=== PATIENT | female | born 1960 | race Caucasian/White ===

== ENCOUNTER 2022-08-12 01:49 | Day surgery (SDC) | payer OTHER, SELFPAY ==
[2022-08-02 13:20] VITALS: BMI 25.6
--- NOTE | 2022-08-11 12:12 | P.PNAN_ITS ---
Anes - Initial Pre Proc Eval Procedure: Operation Date: 08/12/22 09:30 Proposed Procedures p Screening Colonoscopy - Andi Dos Santos MD Date/Time: 08/11/22 12:12 Surgeon: Andi Dos Santos MD Pre Op Diagnosis: neoplasm screening Patient Data Age: 62 Gender: F Height: 1.57 m Weight: 63.6 kg Allergies Allergy/AdvReac Type Severity Reaction Status Date / Time No Known Allergies Allergy Verified 08/12/22 08:25 Patient hx anesthesia problems: none Family hx anesthesia problems: none Results Review: All pre-operative results and documents have been reviewed as part of the pre- operative evaluation. [facility] Surgical History Surgical History History of hysterectomy partial Social History Social History Years smoked: 3 Smoking status: Former smoker Tobacco type: cigarettes Alcohol intake: current Drinks per week: 1 Substance use: never Substance use type: does not use Living arrangements: alone Spiritual care concerns: No Anes - Eval Final PreProcedure Day of Procedure 08/11/22 12:12 Patient weight: overweight Heart: regular rate and rhythm Lungs: clear to auscultation Airway: Mallampati scale class II Neurological: alert and oriented Last oral intake: >/= 8 hours ASA classification: II Emergent: no Anesthetic plan: proceed Anesthesia type and monitoring: general GIVS and standard monitoring Results Review: All pre-operative results and documents have been reviewed as part of the pre- operative evaluation. Informed Consent: The patient's anesthetic plan and its attendant risks and benefits were discussed with the patient/family/POA. Questions were solicited and answers provided to the satisfaction of the patient/family/POA.
--- NOTE | 2022-08-11 19:44 | PM.HPGS ---
History of Present Illness History of Present Illness Consent: Risks, benefits, and alternatives have been discussed and questions answered. Patient agrees to proceed with procedure. Chief complaint: neoplasm screening Narrative: Grace Bañuelos is a 62 year old female who is referred for colon cancer screening. Review of Systems Review of Systems: All systems reviewed & are unremarkable except as noted in HPI and below PMFSH Surgical History Surgical History History of hysterectomy partial Social History Social History Years smoked: 3 Smoking status: Former smoker Tobacco type: cigarettes Alcohol intake: current Drinks per week: 1 Substance use: never Substance use type: does not use Living arrangements: alone Spiritual care concerns: No Meds Home Medications and Allergies Allergies Allergy/AdvReac Type Severity Reaction Status Date / Time No Known Allergies Allergy Verified 08/12/22 08:25 Exam Const: General: alert Orientation/consciousness: patient oriented x3 Resp: Auscultation: clear to auscultation bilaterally Cardio: Rhythm: regular rhythm GI: GI Palp: Yes Soft to palpation and No Tenderness to palpation present (GI) Neuro: General: patient oriented x3 Assessment and Plan Assessment and plan (1) Colon cancer screening: Code(s): Z12.11 - Encounter for screening for malignant neoplasm of colon Status: Acute Assessment and Plan: Colonoscopy with possible biopsy or polypectomy or cautery or injection of substances.
[2022-08-12 08:30] VITALS: BP 129/75; PULSE 71; RESP 20; TEMP 36.3; O2SAT 99; BMI 25.8
[2022-08-12] MEDS: LACTATED RINGERS 1,000 ML 150 ML IV CONT (08:38)
[2022-08-12 09:38] VITALS: BP 90/50; PULSE 81; RESP 19; O2SAT 98
[2022-08-12 09:48] VITALS: BP 91/59; PULSE 87; RESP 18; O2SAT 97
[2022-08-12 09:58] VITALS: BP 98/66; PULSE 72; RESP 28; O2SAT 100
== END 2022-08-12 10:06 | disposition home or self-care (01) ==
PROVIDERS: PCP Family Medicine; Visit Provider Internal Medicine Gastroenterology
PROC: 0DJD8ZZ Inspection of Lower Intestinal Tract, Via Natural or Artificial Opening Endoscopic (ICD-10-PCS; CPT 45378; principal; 2022-08-12 09:30)
DX: Z12.11 Encounter for screening for malignant neoplasm of colon (principal); Z87.891 Personal history of nicotine dependence
CPT/HCPCS: 45378; J2704; J7120

== ENCOUNTER 2024-05-01 08:00 | Outpatient (CLI) | payer OTHER, SELFPAY ==
--- NOTE | ~2024-05-01 | DEXA_ITS ---
Bone Density Report Name: VALERIANO ALVARADO Age: 63 Sex: Female Ethnicity: White Date of : 1960 Indication: postmenopausal; screening for osteoporosis; hysterectomy; Referring Provider: ADRIANA MILLER Study: Bone densitometry was performed. Exam Date: May 01, 2024 Accession number: [id number] Bone Density: Region BMD T-score Z-score Classification AP Spine(L1-L4) 1.056 0.1 1.7 Normal Femoral Neck (Left) 0.682 -1.5 -0.1 Osteopenia Total Hip (Left) 0.886 -0.5 0.6 Normal Femoral Neck (Right) 0.699 -1.3 0.1 Osteopenia Total Hip (Right) 0.847 -0.8 0.3 Normal Total Hip Mean 0.866 -0.7 0.5 Normal World Health Organization criteria for BMD impression classify patients as: Normal (T-score at or above -1.0), Osteopenia (T-score between -1.0 and -2.5), or Osteoporosis (T-score at or below -2.5). 10-year Fracture Risk(1): Major Osteoporotic Fracture 8.6% Hip Fracture 0.8% Reported Risk Factors: [place] (), Neck BMD=0.682, BMI=26.7 (1) FRAX(R) Version 3.08. Fracture probability calculated for an untreated patient. Fracture probability may be lower if the patient has received treatment. Clinical Information Provided by Patient: Has used the following medications: Vitamin D Has the following medical conditions: Hysterectomy Patient maximum height was 62.0 Menopause Age: 55 No regular weight bearing exercise Drinks caffeinated beverages Onset of menses at age 13 Number of children 1 Impression: The patient has low bone mass, based on the Left Femoral Neck T-score. The patient has an estimated ten-year risk of hip fracture of 0.8% and an estimated ten-year risk of major fracture of 8.6%, based on the WHO FRAX algorithm. Discussion: BONE DENSITY IS LOW AT ONE OR MORE SKELETAL SITES. This patient's lowest T-score is low at one or more skeletal sites. It meets the World Health Organization's (WHO) criteria for ?low bone mass? (T-score between -1.0 and -2.5). The patient's 10-year risk of fracture as calculated by FRAX is less than the threshold where pharmacological therapy is recommended by the National Osteoporosis Foundation (NOF). However, all treatment decisions require clinical judgment and consideration of individual patient factors, including patient preferences, comorbidities, previous drug use, risk factors not captured in the FRAX model (e.g., frailty, falls, vitamin D deficiency, increased bone turnover, interval significant decline in bone density) and possible under or overestimation of fracture risk by FRAX. The patient should follow a healthful lifestyle (good nutrition with adequate calcium and vitamin D, and appropriate weight-bearing exercise). Follow-Up: Consider repeating this study in 2 to 3 years to reassess this patient's status, or sooner if there is some new clinical indication. Reported by: KARINE on 05/01/2024 8:31:00 AM. Reviewed, dictated and finalized at location [facility]
--- OUTSIDE RECORDS SUMMARY | 2024-05-01 08:07 | XMS_ITS | Encounter Summary ---
Author Organization [facility] Healthcare Address [address] [place] [address] Care Team Providers Care Viscose Cellar Charge Hand Name Role Phone Alexis Flood MD Primary Care Provider [phone] Encounter Details Date Type Department Care Team (Late st Contact Info) Description 04/17/2024 Results Follow-Up Family Physicians [facility] [address] [place] [address] Alexis Flood MD [address] [facility] [place] [address] Social History Tobacco Use Types Packs/Day Years Used Date Smoking Tobacco: Former Cigarettes 0.3 4 0 06/01/1976 - 06/01/1980 Smokeless Tobacco: Never Alcohol Use Standard Drinks/Week Comments Yes 0 (1 standard drink = 0.6 oz pur e alcohol) PHQ-2 Answer Date Recorded PHQ-2 Total Score (If total score is 3 or more points, staff should administer the PHQ-9) 0 04/09/2024 Comments Unknown Sex and Gender Information Value Date Recorded Sex Assigned at Not on file Legal Sex Female 11:55 PM SENIOR CHEMIST Gender Identity Not on file Sexual Orientation Not on file documented as of this encounter Miscellaneous Notes * Telephone Encounter - Polly Damon MA - 04/22/2024 8:52 AM CST FYSammi Flood OR CHEMIST documented in this encounter Plan of Treatment Not on file documented as of this encounter Visit Diagnoses Not on filedocumented in this encounter Care Teams Viscose Cellar Charge Hand Relationship Specialty Start Date End Date Alexis Flood MD [address] [place] [address] PCP - General 06/02/08 documented as of this encounter
--- OUTSIDE RECORDS SUMMARY | 2024-05-01 08:07 | XMS_ITS | Patient Health Summary ---
Author Organization [facility] Address [address] [place] [address] Care Team Providers Care Harpooner Name Role Phone Alexis Flood MD Primary Care Provider [phone] Note from [facility],non-owned Affiliates and Associated Physician Practices is amultiple site organization consisting of ambulatory clinics and hospital sitesin [place], [place], [place] and [place]. This disclosure is being madepursuant to the Care Everywhere program and may not contain all information available regarding this patient. Last updated 17.[facility] Allergies No known active allergies Medications * Be aware that medications may not be up to date on this document. Alwaysverify current medications with the patient. * Multiple Vitamins-Minerals (ONE-A-DAY WOMENS PETITES) TABS Take 1 (one) tablet by mouth once daily * estradiol (Estrace) 0.1 MG/GM vaginal cream(Started 04/20/2023) Insert 1 g into the vagina Two times a week 3 refills by 04/19/2024 Active Problems Problem Noted Date Diagnosed Date Osteoarthritis of carpometacarpal joint of thumb 04/22/2015 Resolved Problems Problem Noted Date Diagnosed Date Resolved Date Urinary tract infection 10/21/201408/20 Immunizations * INFLUENZA VACCINE(Given 12/02/2019, 12/20/2018, 04/19/2018, 01/03/2017) * INFLUENZA VACCINE, HIGH-DOSE, QUADR. (FLUZONE HIGH-DOSE QUADRIVALENT; 65Y+), 0.7 ML (HD-IIV4)(Given 02/04/2016) * INFLUENZA VACCINE, QUADR. (FLUZONE; FLULAVAL; FLUARIX; AFLURIA QUADRIVALENT; 6MO+), 0.5 ML (IIV4)(Given 12/12/2017) * TDAP (7yrs+)(Given 01/12/2009) * Zoster Hzv Vacc Recombinant Inj Im(Given 07/20/2018, 04/19/2018) Social History Tobacco Use Types Packs/Day Years Used Date Smoking Tobacco: Former Cigarettes Q uit: 1982 Passive Smoke Exposure: Never Smokeless Tobacco: Never Alcohol Use Standard Drinks/Week Comments Yes 1 (1 standard drink = 0.6 oz pur e alcohol) AUDIT-C Answer Date Recorded Q1: How often do you have a drink containing alc ohol? Monthly or less 10/02/2019 Q2: How many drinks containi ng alcohol do you have on a typical day when you are drinking? 1 or 2 10/02/2019 Q3: How often do you have si x or more drinks on one occasion? Never 10/02/2019 PHQ-2 Answer Date Recorded Patient Health Questionnaire-2 Score 4 03/27/2023 Sex and Gender Information Value Date Recorded Sex Assigned at Not on file Gender Identity Not on file Sexual Orientation Not on file Last Filed Vital Signs Vital Sign Reading Time Taken Comments Blood Pressure 124/84 03/30/2023 11:47 AM [employer]ICER Pulse 71 04/23/2020 12:07 PM [employer] OFFICER Temperature 36.7 C (98.1 F) 03/30/2023 11:47 AM [employer] OFFICER Respiratory Rate - - Oxygen Saturation 98% 04/23/2020 12:07 PM [employer] OFFICER Inhaled Oxygen Concentration - - Weight 65.3 kg (144 lb) 03/30/2023 11:47 AM [employer] OFFICER Height 157.5 cm (5' 2.01 ) 03/30/2023 11:[address] Body Mass Index 26.33 03/30/2023 11:47 AM [employer] OFFICER Procedures * CO INSERT NON-INDWELLING BLADDER(Performed 03/21/2022) Performed for Postop check * URINALYSIS AUTO - POINT OF CARE (AMB) [facility](Performed 03/21/2022) Performed for Postop check * CO INSERT NON-INDWELLING BLADDER(Performed 02/09/2022) Performed for Postop check * CO CYSTOMETROGRAM W/INSURANCE BILLING SPECIALIST&UP(Performed 01/12/2022) Performed for Cystocele, midline, Stress incontinence in female * CO INTRAABDOMINAL PRESSURE TEST(Performed 01/12/2022) Performed for Cystocele, midline, Stress incontinence in female * CO ANAL/URINARY MUSCLE STUDY(Performed 01/12/2022) Performed for Cystocele, midline, Stress incontinence in female * CO ELECTRO-UROFLOWMETRY, FIRST(Performed 01/12/2022) Performed for Cystocele, midline, Stress incontinence in female * URINALYSIS AUTO - POINT OF CARE (AMB) [facility](Performed 01/12/2022) Performed for Cystocele, midline * PATHOLOGY/CYTOLOGY REPORT ORDER(Performed 03/16/2020) * LAB RESULTS ORDER(Performed 03/10/2020) * CARDIAC EKG ORDER(Performed 03/05/2020) * CO CYSTOMETROGRAM W/INSURANCE BILLING SPECIALIST&UP(Performed 10/02/2019) Performed for Cystocele, midline, Uterovaginal prolapse, complete, Rectocele, Constipation, unspecified constipation type * CO INTRAABDOMINAL PRESSURE TEST(Performed 10/02/2019) Performed for Cystocele, midline, Uterovaginal prolapse, complete, Rectocele, Constipation, unspecified constipation type * CO ANAL/URINARY MUSCLE STUDY(Performed 10/02/2019) Performed for Cystocele, midline, Uterovaginal prolapse, complete, Rectocele, Constipation, unspecified constipation type * CO ELECTRO-UROFLOWMETRY, FIRST(Performed 10/02/2019) Performed for Cystocele, midline, Uterovaginal prolapse, complete, Rectocele, Constipation, unspecified constipation type * URINALYSIS AUTO - POINT OF CARE (AMB) [facility](Performed 10/02/2019) Performed for Cystocele, midline, Uterovaginal prolapse, complete, Rectocele, Constipation, unspecified constipation type * CO INSERT NON-INDWELLING BLADDER(Performed 08/23/2019) Performed for Cystocele, midline * URINALYSIS AUTO - POINT OF CARE (AMB) [facility](Performed 08/23/2019) Performed for Cystocele, midline Results * CO INSERT NON-INDWELLING BLADDER (03/21/2022 4:07 PM [employer] OFFICER) Jeaneth Goins MD - 03/21/2022 4:07 PM [employer] OFFICER Jeaneth Martin MD 03/21/2022 4:09 PM Procedure note: Straight catheterization was performed after swabbing the urethra with betadine. A 14 Fr urethral catheter was inserted without difficulty and the bladder was drained for 8 ml. Jeaneth Martin MD PROCEDURE/MINOR ROSALES GICAL ORDERABLES * URINALYSIS AUTO - POINT OF CARE (AMB) [facility] (03/21/2022 4:05 PM [employer] OFFICER) Only the most recent of4 resultswithin the time period is included. Glucose UA neg Bilirubin UA POCT neg Ketones UA POCT neg Specific [place] UA 1.030 Blood Urine POCT neg pH UA 5.5 Protein UA neg Urobilinogen UA - Comment:0.2 mg/dL Nitrite UA neg WBC UA neg Urine URINE / Unknown 03/21/2022 4 :05 PM [employer] OFFICER Jeaneth Martin MD LAB - POINT OF CARE ORDERABLES * CO INSERT NON-INDWELLING BLADDER (02/09/2022 3:31 PM [employer]CEMENT OFFICER) Narrative Jeaneth Martin MD - 02/09/2022 3:31 PM [employer] OFFICER Jeaneth Martin MD 02/09/2022 3:33 PM Procedure note: Straight catheterization was performed after swabbing the urethra with betadine. A 14 Fr urethral catheter was inserted without difficulty and the bladder was drained for 200cc. Jeaneth Martin MD PROCEDURE/MINOR ROSALES GICAL ORDERABLES * CO ELECTRO-UROFLOWMETRY, FIRST, CO ANAL/URINARY MUSCLE STUDY, CO INTRAABDOMINAL PRESSURE TEST, CO CYSTOMETROGRAM W/INSURANCE BILLING SPECIALIST&UP (01/12/2022 4:07 PM [employer]CEMENT OFFICER) Narrative Jeaneth Martin MD - 01/12/2022 4:07 PM [employer]CEMENT OFFICER Jeaneth Martin MD 01/12/2022 5:46 PM Urogynecology and Pelvic Reconstructive Surgery Procedure Note: Urodynamic Evaluation 01/12/2022 Evangelina Bañuelos is a 61 year old female who presents for a urodynamic evaluation. Indication(s) for study: cystocele, stress urinary incontinence. Laboratory Results: Catheterized urine dipstick shows: trace ketones Urodynamic Data: Urodynamic studies are performed in a seated position unless otherwise noted. Complex uroflowmetry was performed to noninvasively study the urine flow over time. The patient was instructed to void on a commode chair. A post void residual urine measurement was performed via straight catheterization immediately after uroflowmetry. Using calibrated equipment, the maximum urinary flow rate was 21 cc per second with a voiding time of 40 seconds and a voided volume of 383 cc. The residual urine was 3 cc. Complex Uroflowmetry Impressions: Continuous flow, normal PVR Complex cystometry was performed to assess bladder sensation and storage. A dual-channel 7-Fr catheter was passed via the urethra into the bladder. A second 7-Fr catheter was placed in the vagina or rectum to measure intra-abdominal pressure. Both catheters were zeroed to atmospheric pressure and the bladder was filled with room-temperature saline in retrograde fashion using a pump. Bladder sensation and urgency were assessed while filling. Bladder pressure was continuously observed during the study for evidence of involuntary detrusor contractions. At maximum capacity, provocative measures were performed to elicit involuntary detrusor contractions. These measures include: cough, heel-bounce, listening to running water, position change, and/or guided imagery. The bladder was filled with room temperature water at a rate of 80 cc per minute. The patient tolerated this and she was found to have: First sensation (S1) at 142 cc. Sensation of fullness at 292 cc. Strong desire at 405 cc. Maximal cystometric capacity of 435 cc. She does have normal bladder compliance. She does not have loss of urine with a rise in detrusor pressure. Stress testing was performed during cough and Valsalva to observe for urine loss from the urethra. This is performed with any significant prolapse reduced (barrier reduction testing). If no stress incontinence is noted with the transurethral in place, the catheter is temporarily removed and stress testing is repeated. Cough leak point pressure (CLPP): CLPP: leak with the Pves catheter removed Valsalva leak point pressure (VLPP): Negative VLPP: 52 cm H20 at 151 cc Complex Cystometry Impressions: Bladder Sensation: normal Bladder Compliance: normal Detrusor Function: no detrusor overactivity Stress Testing Impressions: urodynamic stress incontinence Urethral pressure profilometry was performed to assess urethral function. The transurethral catheter is slowly withdrawn through the urethra in order to assess urethral closure pressures. Once this portion of the study is completed, the transurethral catheter is re-inserted into the bladder for the remainder of the urodynamic evaluation. Urethral pressure profilometry (UPP): Maximal urethral closure pressure (MUCP): 65 cm H20 Urethral Pressure Profile Impression: MUCP: Normal (MUCP > 40 cm H20) A micturition, or pressure-flow study, was performed in order to further evaluate voiding function. In this study the transurethral and vaginal (or rectal) catheters are left in place and the patient urinates around these catheters. Bladder pressures are recorded while also recording urine flow over time. At the end of the study, all catheters are removed and a final post void residual is obtained. Post procedure instructions are reviewed. The patient was instructed to void. She voided via detrusor contraction and valsalva. Her maximal detrusor during void (Pdet max) was 27 cm water. Her void was not phasic. Her post void residual by catheterization was 2 cc. Pressure Flow Study Impressions: Detrusor function: normal Perineal surface electromyography (EMG) was performed during complex cystometry and micturition, to assess pelvic floor muscle activity during filling and voiding phases of urodynamic studies. Urethral function: elevated pelvic floor EMG activity during the void, normal PVR Assessment: Grace Bañuelos is a 61 year old female with: ICD-10-CM 1. Cystocele, midline N81.11 URINALYSIS AUTO - POINT OF CARE (AMB) [facility] PROC URODYNAMICS 2. Stress incontinence in female N39.3 PROC URODYNAMICS There was not evidence of DO or DOI. The patient did demonstrate stress incontinence with CLPP with the Pves catheter removed with barrier reduction. 1. Uroflow Impression: Normal uroflowmetry and normal post void residual 2. Cystometrogram Summary: normal sensation, normal compliance, no detrusor overactivity 3. Stress Testing Impressions: urodynamic stress incontinence 4. Urethral Pressure Profile Summary: normal 5. Pressure Flow Summary: elevated pelvic floor EMG activity during the void, normal PVR Plan: The patient will follow up with me to discuss the results and determine a plan, see separate note. Jeaneth Martin MD Jeaneth Martin MD PROCEDURE/MINOR ROSALES GICAL ORDERABLES * PATHOLOGY/CYTOLOGY REPORT ORDER (03/16/2020 7:57 AM AN[employer]CEMENT OFFICER) Narrative 03/16/2020 7:57 AM AN[employer]CEMENT OFFICER Ordered by an unspecified provider. Scanned Document LAB - PATHOLOGY/CYTO LOGY ORDERABLES * LAB RESULTS ORDER (03/10/2020 8:54 AM AN[employer]CEMENT OFFICER) Narrative 03/10/2020 8:54 AM AN[employer]CEMENT OFFICER Ordered by an unspecified provider. Scanned Document LAB - THERAPEUTIC DR UG MONITORING ORDERABLES * CARDIAC EKG ORDER (03/05/2020 7:33 AM AN[employer]CEMENT OFFICER) Narrative 03/05/2020 7:33 AM AN[employer]CEMENT OFFICER Ordered by an unspecified provider. Scanned Document CARDIAC SERVICES ORD ERABLES * CO ELECTRO-UROFLOWMETRY, FIRST, CO ANAL/URINARY MUSCLE STUDY, CO INTRAABDOMINAL PRESSURE TEST, CO CYSTOMETROGRAM W/INSURANCE BILLING SPECIALIST&UP (10/02/2019 5:40 PM CDT) Narrative Jeaneth Martin MD - 10/02/2019 5:40 PM CDT Jeaneth Martin MD 10/05/2019 4:33 PM Urogynecology and Pelvic Reconstructive Surgery Procedure Note: Urodynamic Evaluation 10/02/2019 Subjective Grace Bañuelos is a 59 year old female who presents for a urodynamic evaluation. Indication(s) for study: uterovaginal prolapse, cystocele, rectocele. Laboratory Results: Catheterized urine dipstick shows: wnl Urodynamic Data: Urodynamic studies are performed in a seated position unless otherwise noted. Complex uroflowmetry was performed to noninvasively study the urine flow over time. The patient was instructed to void on a commode chair. A post void residual urine measurement was performed via straight catheterization immediately after uroflowmetry. Using calibrated equipment, the maximum urinary flow rate was 15 cc per second with a voiding time of 30 seconds and a voided volume of 189 cc. The residual urine was 10 cc. Complex Uroflowmetry Impressions: Continuous flow, normal PVR Complex cystometry was performed to assess bladder sensation and storage. A dual-channel 7-Fr catheter was passed via the urethra into the bladder. A second 7-Fr catheter was placed in the vagina or rectum to measure intra-abdominal pressure. Both catheters were zeroed to atmospheric pressure and the bladder was filled with room-temperature saline in retrograde fashion using a pump. Bladder sensation and urgency were assessed while filling. Bladder pressure was continuously observed during the study for evidence of involuntary detrusor contractions. At maximum capacity, provocative measures were performed to elicit involuntary detrusor contractions. These measures include: cough, heel-bounce, listening to running water, position change, and/or guided imagery. The bladder was filled with room temperature water at a rate of 80 cc per minute. The patient tolerated this and she was found to have: First sensation (S1) at 107 cc. Sensation of fullness at 192 cc. Strong desire at 333 cc. Maximal cystometric capacity of 361 cc. She does have normal bladder compliance. She does not have loss of urine with a rise in detrusor pressure. Stress testing was performed during cough and Valsalva to observe for urine loss from the urethra. This is performed with any significant prolapse reduced (barrier reduction testing). If no stress incontinence is noted with the transurethral in place, the catheter is temporarily removed and stress testing is repeated. Cough leak point pressure (CLPP): Negative CLPP: 122 cm H20 at 361 cc Valsalva leak point pressure (VLPP): Negative VLPP: 68 cm H20 at 301 cc Complex Cystometry Impressions: Bladder Sensation: normal Bladder Compliance: normal Detrusor Function: no detrusor overactivity Stress Testing Impressions: No urodynamic stress incontinence Urethral pressure profilometry was performed to assess urethral function. The transurethral catheter is slowly withdrawn through the urethra in order to assess urethral closure pressures. Once this portion of the study is completed, the transurethral catheter is re-inserted into the bladder for the remainder of the urodynamic evaluation. Urethral pressure profilometry (UPP): Maximal urethral closure pressure (MUCP): 65 cm H20 Urethral Pressure Profile Impression: MUCP: Normal (MUCP > 40 cm H20) A micturition, or pressure-flow study, was performed in order to further evaluate voiding function. In this study the transurethral and vaginal (or rectal) catheters are left in place and the patient urinates around these catheters. Bladder pressures are recorded while also recording urine flow over time. At the end of the study, all catheters are removed and a final post void residual is obtained. Post procedure instructions are reviewed. The patient was instructed to void. She voided via detrusor contraction. Her maximal detrusor during void (Pdet max) was 39 cm water. Her void was not phasic. Her post void residual by catheterization was 20 cc. Pressure Flow Study Impressions: Detrusor function: normal Perineal surface electromyography (EMG) was performed during complex cystometry and micturition, to assess pelvic floor muscle activity during filling and voiding phases of urodynamic studies. Urethral function: elevated pelvic floor EMG activity during the void, normal PVR Assessment: Grace Bañuelos is a 59 year old female with: ICD-10-CM 1. Cystocele, midline N81.11 URINALYSIS AUTO - POINT OF CARE (AMB) [facility] PROC URODYNAMICS 2. Uterovaginal prolapse, complete N81.3 URINALYSIS AUTO - POINT OF CARE (AMB) [facility] PROC URODYNAMICS 3. Rectocele N81.6 URINALYSIS AUTO - POINT OF CARE (AMB) [facility] PROC URODYNAMICS 4. Constipation, unspecified constipation type K59.00 URINALYSIS AUTO - POINT OF CARE (AMB) [facility] PROC URODYNAMICS There was not evidence of DO or DOI. The patient did not demonstrate stress incontinence with NCLPP of 122 cm H20 at 361 cc with barrier reduction. 1. Uroflow Impression: Normal uroflowmetry and normal post void residual 2. Cystometrogram Summary: normal sensation, normal compliance, no detrusor overactivity 3. Stress Testing Impressions: no urodynamic stress incontinence 4. Urethral Pressure Profile Summary: normal 5. Pressure Flow Summary: normal detrusor function, elevated pelvic floor EMG activity during the void, normal PVR Plan: The patient will follow up with me to discuss the results and determine a plan, see separate note. Jeaneth Martin MD Jeaneth Martin MD PROCEDURE/MINOR ROSALES GICAL ORDERABLES * CO INSERT NON-INDWELLING BLADDER (08/23/2019 12:04 PM CDT) Narrative Jeaneth Martin MD - 08/23/2019 12:04 PM CDT Jeaneth Martin MD 08/23/2019 1:53 PM Procedure note: Straight catheterization was performed after swabbing the urethra with betadine. A 14 Fr urethral catheter was inserted without difficulty and the bladder was drained for 20 mL. The patient tolerated the procedure well. Jeaneth Martin MD PROCEDURE/MINOR ROSALES GICAL ORDERABLES Care Teams Harpooner Relationship Specialty Start Date End Date Alexis Flood MD [address] [place] [address] PCP - General 07/29/19
--- OUTSIDE RECORDS SUMMARY | 2024-05-01 08:07 | XMS_ITS | Referral Summary ---
Author Organization [facility] Address [address] [place] [address] Care Team Providers Care Vibrating Screen Operator Name Role Phone Alexis Flood MD Primary Care Provider [phone] Source Comments [facility],non-owned Affiliates and Associated Physician Practices is amultiple site organization consisting of ambulatory clinics and hospital sitesin [place], [place], [place] and [place]. This disclosure is being madepursuant to the Care Everywhere program and may not contain all information available regarding this patient. Last updated 17.[facility] Allergies No known active allergies Medications * Be aware that medications may not be up to date on this document. Alwaysverify current medications with the patient. Medication Sig Dispensed Refills Start Date End Date Status Multiple Vitamins-Minerals (ONE-A-DAY WOMENS PETITES) TABS Take 1 (one) tablet by mouth once daily Active estradiol (Estrace) 0.1 MG/GM vaginal cream Insert 1 g into the vagina Two times a week 42.5 g 3 04/20/2023 Active Active Problems Problem Noted Date Diagnosed Date Osteoarthritis of carpometacarpal joint of thumb 04/22/2015 Overview (08/23/2019): Carpometacarpal thumb joint osteoarthritis Resolved Problems Problem Noted Date Diagnosed Date Resolved Date Urinary tract infection 10/21/201408/20 Overview (08/23/2019): UTI (urinary tract infection) Immunizations Name Administration Dates Next Due INFLUENZA VACCINE 12/02/2019,,04/19/2018,2016 INFLUENZA VACCINE, HIGH-DOSE , QUADR. (FLUZONE HIGH-DOSE QUADRIVALENT; 65Y+), 0.7 ML (HD-IIV4) 02/04/2016 INFLUENZA VACCINE, QUADR. 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 [employer] Pulse 71 04/23/2020 12:07 PM [employer] Temperature 36.7 C (98.1 F) 03/30/2023 11:47 AM [employer] Respiratory Rate - - Oxygen Saturation 98% 04/23/2020 12:07 PM [employer] Inhaled Oxygen Concentration - - Weight 65.3 kg (144 lb) 03/30/2023 11:47 AM [employer] Height 157.5 cm (5' 2.01 ) 03/30/2023 11:[address] Body Mass Index 26.33 03/30/2023 11:47 AM [employer] Plan of Treatment Not on file Care Teams Vibrating Screen Operator Relationship Specialty Start Date End Date Alexis Flood MD [address] [place] [address] PCP - General 07/29/19
--- OUTSIDE RECORDS SUMMARY | 2024-05-01 08:07 | XMS_ITS | Clinical Summary ---
Author Organization [facility] Address [address] [place] [address] Care Team Providers Care Solar Installer Technician Name Role Phone Alexis Flood MD Primary Care Provider [phone] Source Comments [facility],non-owned Affiliates and Associated Physician Practices is amultiple site organization consisting of ambulatory clinics and hospital sitesin [place], [place], [place] and [place]. This disclosure is being madepursuant to the Care Everywhere program and may not contain all information available regarding this patient. 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 Pulse 71 04/23/2020 12:07 PM HANDLE MAKER Temperature 36.7 C (98.1 F) 03/30/2023 11:47 AM HANDLE MAKER Respiratory Rate - - Oxygen Saturation 98% 04/23/2020 12:07 PM HANDLE MAKER Inhaled Oxygen Concentration - - Weight 65.3 kg (144 lb) 03/30/2023 11:47 AM HANDLE MAKER Height 157.5 cm (5' 2.01 ) 03/30/2023 11:[address] Body Mass Index 26.33 03/30/2023 11:47 AM HANDLE MAKER Plan of Treatment Health Maintenance Due Date Last Done Comments NATE (AGES 45-75) - COLON CA SCREENING 1961 COLON MONITORING 1961 COLONOSCOPY - COLON CA SCREENING 1961 CT COLONOGRAPHY - COLON CA SCREENING 1961 Colorectal Cancer Screening 1961 FIT - COLON CA SCREENING 1961 FLEX SIG - COLON CA SCREENING 1961 LIPID TESTING 1961 PAP SMEAR 1961 HIV SCREENING 1976 HEPATITIS C SCREENING 06/16/1979 PNEUMOCOCCAL VACCINE 50+ (1 of 1 - PCV) 06/21/2011 DTAP/TDAP/TD VACCINES (2 - Td or Tdap) 01/12/2019 01/12/2009 SCREENING FOR DIABETES 03/30/2023 COVID-19 VACCINE ( season) 2023 01/23/2023, 11/17/2021, 11/17/2021, Additional history exists INFLUENZA VACCINE (#1) 2023 , 12/02/2019, 12/20/2018, Additional history exists DEPRESSION SCREENING 02/21/2024 MAMMOGRAM 12/12/2024 12/12/2022, 11/20, 12/08/2021, Additional history exists Respiratory Syncytial Virus (RSV) Vaccine Pt: or over 60 yrs (1 - 1-dose 75+ series) 2036 ZOSTER VACCINE Completed 07/20/2018, 04/19/2018 HEPATITIS B VACCINE Aged Out No longe r eligible based on patient's age to complete this topic HIB VACCINE Aged Out No longer eligi ble based on patient's age to complete this topic HPV VACCINE Aged Out No longer eligi ble based on patient's age to complete this topic MENINGOCOCCAL (Group B) VACCINE SHARED DECISION-MAKING Aged Out No longer eligible based on patient's age to complete this topic MENINGOCOCCAL GROUPS A/C/Y/W VACCINE Aged Out No longer eligible based on patient's age to complete this topic PNEUMOCOCCAL VACCINE Aged Out No long er eligible based on patient's age to complete this topic Care Teams Solar Installer Technician Relationship Specialty Start Date End Date Alexis Flood MD [address] [place] [address] PCP - General 07/29/19
--- OUTSIDE RECORDS SUMMARY | 2024-05-01 08:07 | XMS_ITS | Clinical Summary ---
Author Organization [facility] [address] [facility] Address [address] [place] [address] Care Team Providers Care Flour Mixer Name Role Phone Alexis Flood MD Primary Care Provider [phone] Allergies No known active allergies Medications ergocalciferol (VITAMIN D) 50,000 unit capsule TAKE 1 CAPSULE BY MOUTH WEEKLY 03/14/2024 Active omeprazole (PriLOSEC) 40 mg capsule Take 1 capsule (40 mg total) by mouth daily Active Active Problems Problem Noted Date Diagnosed Date Dyspepsia 04/21/2024 Assessment & Plan (04/21/2024 10:31 AM BODYBUILDER): Reviewed differnetial with patient. Reivewed anatomy fo area of ttp and will monitor respnose. Will check with abdominal ultrasound and then continue on labwork to look for pancreatic abnormalties. Reivewed red falg s/s. Discussed differential to include PUD, biliary, GERD, gastritis, etc. Adjustment disorder with anxious mood 04/21/2024 Assessment & Plan (04/21/2024 10:31 AM BODYBUILDER): Good insight into increased stressors. Reivewed work and sleep hygiene. Montior response. BMI 26.0-26.9,adult 04/21/2024 Osteoarthritis of carpometacarpal joint of thumb 04/22/2015 Overview (05/27/2016): Carpometacarpal thumb joint osteoarthritis Urinary tract infection 10/21/2014 Overview (05/27/2016): UTI (urinary tract infection) Encounters Date Type Department Care Team Description 04/22/2024 Orders Only [facility] [address] [phone] Alexis Flood MD Dyspepsia (Primary Dx) 04/17/2024 11:30 AM BODYBUILDER Lab [address] [address] Dyspepsia 04/17/2024 10:26 AM BODYBUILDER - 04/17/2024 11:59 PM BODYBUILDER Hospital Encounter [facility] [address] [place] [phone] Annual physical exam Discharge Disposition: Discharge to home or self care 04/17/2024 9:52 AM BODYBUILDER - 04/17/2024 11:59 PM BODYBUILDER Hospital Encounter [facility] ` [address] [place] [phone] Dyspepsia Discharge Disposition: Discharge to home or self care 04/17/2024 Results Follow-Up [facility] [address] [phone] Alexis Flood MD 04/09/2024 1:15 PM BODYBUILDER Office Visit [facility] Primary Care at [address] [phone] Alexis Flood MD Dyspepsia (Primary Dx); Adjustment disorder with anxious mood; BMI 26.0-26.9,adult 04/09/2024 Telephone [facility] Primary Care at [address] [phone] Alexis Flood MD from Last 3 Months Immunizations Immunization Administration Dates Next Due Influenza, Quadrivalent, Spl it, Preservative Free, Intramuscular 12/12/2017,12/12/2017 Influenza, Trivalent, High D ose, Split, Preservative Free, Intramuscular 02/04/2016,02/04/2016 Influenza, Trivalent, Preser vative Free, Intramuscular 03/05/2012 Influenza, Unspecified 09/11/2023(Deferr ed: Patient Refused),10/21/2022(Deferred: Patient Refused),01/02/2022(Deferred: Patient Refused),12/01/2020,12/02/2019, 019,04/19/2018,04/19/2018,01/03/2017,1 03/05/2016,02/04/2016 Pfizer SARS-CoV-2 Monovalent Vaccination (12+ Yrs) PURPLE 01/23/2023,11/17/2021 Pneumococcal Conjugate Pcv21 04/07/2024 Tdap 01/12/2009,01/12/2009 ZOSTER Recombinant 07/20/2018, 9,04/19/2018,04/19 Surgical History Surgery Date Site/Laterality Comments OTHER SURGICAL HISTORY 2005 fibroid cyst on cervix: outpatient surgery HYSTERECTOMY Partial 03/04/20 BLADDER SURGERY 02/09/22 sling Medical History Medical History Date Comments Hx Other Medical fibroid cyst on cervix 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 Arthritis Arthritis; Comme nts: CLS 04/22/2015 - Family History Medical History Relation Name Comments COPD Brother 2 Kristopher Avila Early Brother 2 Kristopher Avila Other Brother 2 Kristopher Avila Alive and well; Breast cancer Brother 3 Cancer -breast ; Cancer Father Gaurav Avila Diabetes Father Gaurav Avila Diabetes melli tus; Other Father Gaurav Avila Cancer -prosta te and bone sandra; /; Alzheimer's disease Maternal Grandmother Marylu Barragan mstein Alzheimer's disease Mother Mariiln Avila Arthritis Mother Marilin Avila Memory loss Mother Marilin Avila Other Mother Marilin Avila Alive and well; Alzheimer's disease Mother's Sister 1 [place] Black Cancer Mother's Sister 1 [place] Black Cancer Mother's Sister 2 Milli Domínguezton Cancer Mother's Sister 3 Nafisa Weiss Cancer Sister 1 Sandy Vance Miscarriages / Stillbirths Sister 1 Sandy Vance Diabetes Sister 2 Keshiacarson Taylor Relation Name Status Comments Brother 1 Alive Brother 2 Kristopher Avila Brother 3 Father Gaurav Avila Maternal Grandmother Marylu Olveratein Mother Marilin Avila Alive Mother's Sister 1 [place] Black Mother's Sister 2 Milli Catina Mother's Sister 3 Nafisa Weiss Sister 1 Sandy Vance Sister 2 Keshia Taylor Social History Tobacco Use Types Packs/Day Years Used Date Smoking Tobacco: Former Cigarettes 0.3 4 0 06/01/1976 - 06/01/1980 Smokeless Tobacco: Never Tobacco Cessation:Counseling Given: Not Answered Alcohol Use Standard Drinks/Week Comments Yes 0 (1 standard drink = 0.6 oz pur e alcohol) PHQ-2 Answer Date Recorded PHQ-2 Total Score (If total score is 3 or more points, staff should administer the PHQ-9) 0 04/09/2024 Comments Unknown Sex and Gender Information Value Date Recorded Sex Assigned at Not on file Legal Sex Female 11:55 PM BODYBUILDER Gender Identity Not on file Sexual Orientation Not on file Obstetrics History Last Filed Vital Signs Vital Sign Reading Time Taken Comments Blood Pressure 132/70 04/09/2024 1:17 PM BODYBUILDER Pulse 70 04/09/2024 1:17 PM BODYBUILDER Temperature 36.8 C (98.2 F) 04/09/2024 1:17 PM BODYBUILDER Respiratory Rate 16 09/11/2023 7:58 AM CDT Oxygen Saturation 98% 04/09/2024 1:17 PM BODYBUILDER Inhaled Oxygen Concentration - - Weight 66.1 kg (145 lb 11.2 oz) 04/09/2024 1:17 PM BODYBUILDER Height 157.5 cm (5' 2 ) 04/09/2024 1:17 PM BODYBUILDER Body Mass Index 26.65 04/09/2024 1:17 PM BODYBUILDER Plan of Treatment Health Maintenance Due Date Last Done Comments Hepatitis C Screening 1960 Hepatitis B Screening 06/21/1979 DTaP/Tdap/Td Vaccine (3 - Td or Tdap) 01/12/2019 01/12/2009, 01/12/2009 Covid-19 Vaccine ( season) 2023 01/23/2023, 11/17/2021, 11/17/2021, Additional history exists Influenza Vaccine (#1) 2023 , 12/02/2019, 12/20/2018, Additional history exists Regular Well Visit/Exam 18-64 09/10/2024 09/11/2023, 08/26/2022, 08/25/2021, Additional history exists Breast Cancer Screening-Mammogram 12/13/2024 12/14/2023, 12/12/2022, 12/08/2021, Additional history exists Depression Screening 04/09/2025 04/09/2024, 09/11/2023, 08/26/2022, Additional history exists Colon Cancer Screening-Colonoscopy 08/12/2032 08/12/2022 Zoster Vaccine Completed 07/20/2018, 06/22, 04/19/2018, Additional history exists Colon Cancer Screening-CT Colonography Discontinued 08/12/2022 Colon Cancer Screening-DNA Stool Discontinued 08/12/2022 Colon Cancer Screening-FIT Discontinued 08/12/2022 Colon Cancer Screening-Sigmoidoscopy Discontinued 08/12/2022 Pneumococcal vaccine <65 Aged Out 04/07/2024 No longer eligible based on patient's age to complete this topic Procedures Procedure Name Priority Date/Time Associated Diagnosis Comments DIFFERENTIAL AUTO Routine 04/17/2024 11: 59 AM BODYBUILDER Dyspepsia CBC WITH AUTO DIFFERENTIAL Routine 04/17/2024 11:59 AM BODYBUILDER Dyspepsia EGFR Routine 04/17/2024 11:58 AM BODYBUILDER Dyspepsia COMPREHENSIVE METABOLIC PANEL Routine 04/17/2024 11:58 AM BODYBUILDER Dyspepsia AMYLASE Routine 04/17/2024 11:58 AM BODYBUILDER Dyspepsia LIPASE Routine 04/17/2024 11:58 AM BODYBUILDER Dyspepsia US ABDOMEN COMPLETE Schedule Routine, Read Routine (OP Routine) 04/17/2024 10:46 AM BODYBUILDER Dyspepsia XR HIP LEFT 2 OR 3 VIEWS Schedule Routine, Read Routine (OP Routine) 04/17/2024 10:33 AM BODYBUILDER Annual physical exam SCREENING MAMMOGRAM BILATERAL W ROBBI Schedule Routine, Read Routine (OP Routine) 12/14/2023 2:20 PM CDT Screening mammogram, encounter for COLONOSCOPY Routine 08/12/2022 from Last 3 Months or Most Recently Relevant to Health Maintenance Results * Differential, auto (04/17/2024 11:59 AM BODYBUILDER) Neutrophil abs 3.0 1.5 - 6.5 K/cumm Imm gran abs 0.0 0.0 - 0.1 K/cumm [facility] Lymphocyte abs 1.6 0.8 - 3.3 K/cumm [facility] Monocyte abs 0.5 0.2 - 0.8 K/cumm [facility] Eosinophil abs 0.1 0.0 - 0.5 K/cumm [facility] Basophil abs 0.1 0.0 - 0.1 K/cumm [facility] Neutrophil pct 56.9 % [facility] Comment: Interpretive Data Percent cell count reference ranges are not reported, since discordance with absolute values may lead to misinterpretation of CBC data. Current Interpretive Data was last revised on 2017. Imm gran pct 0.2 % [facility] Comment: Interpretive Data Percent cell count reference ranges are not reported, since discordance with absolute values may lead to misinterpretation of CBC data. Current Interpretive Data was last revised on 2017. Lymphocyte pct 30.1 % [facility] Comment: Interpretive Data Percent cell count reference ranges are not reported, since discordance with absolute values may lead to misinterpretation of CBC data. Current Interpretive Data was last revised on 2017. Monocyte pct 9.1 % [facility] Comment: Interpretive Data Percent cell count reference ranges are not reported, since discordance with absolute values may lead to misinterpretation of CBC data. Current Interpretive Data was last revised on 2017. Eosinophil pct 2.3 % [facility] Comment: Interpretive Data Percent cell count reference ranges are not reported, since discordance with absolute values may lead to misinterpretation of CBC data. Current Interpretive Data was last revised on 2017. Basophil pct 1.4 % [facility] Comment: Interpretive Data Percent cell count reference ranges are not reported, since discordance with absolute values may lead to misinterpretation of CBC data. Current Interpretive Data was last revised on 2017. Blood 04/17/2024 11:5 9 AM BODYBUILDER 04/17/2024 11:59 AM BODYBUILDER Alexis Flood MD LAB BLOOD ORDERABLES Destiny l Result Performing Organization Address [facility] Co de Phone Number BECCA RICARDO [phone] [place], [place] [phone] * (ABNORMAL) CBC with auto differential (04/17/2024 11:59 AM BODYBUILDER) Pathologist [facility] WBC 5.2 3.8 - 9.9 K/cumm Hgb 12.2 11.9 - 15.5 g/dL [facility] Hct 39.5 35.6 - 45.5 % [facility] Plt 257 150 - 400 K/cumm [facility] MPV 9.5 9.1 - 12.3 fL [facility] RBC 4.53 3.90 - 5.20 M/cumm [facility] MCV 87.2 81.3 - 96.4 fL [facility] MCH 26.9(L) 27.1 - 33.3 pg [facility] MCHC 30.9(L) 32.3 - 35.7 g/dL [facility] RDW CV 13.7 11.1 - 14.9 % [facility] RDW SD 43.7 35.7 - 48.1 fL [facility] NRBC abs 0.00 0.00 - 0.01 K/cumm [facility] CH Blood 04/17/2024 11:5 9 AM BODYBUILDER 04/17/2024 11:59 AM BODYBUILDER Alexis Flood MD LAB BLOOD ORDERABLES Destiny l Result Performing Organization Address [facility] Co de Phone Number BECCA RICARDO [phone] [employer] [place], [place] [phone] * eGFR (04/17/2024 11:58 AM BODYBUILDER) Pathologist [facility] eGFR >90 >=60 mL/min/1. 73 m2 Comment: Interpretive Data Reference Interval Normal >/= 90 mL/min/1.73m2 Mildly decreased* 60 - 89 mL/min/1.73m2 Mildly to moderately decreased 45 - 59 mL/min/1.73m2 Moderately to severely decreased 30 - 44 mL/min/1.73m2 Severely decreased 15 - 29 mL/min/1.73m2 Kidney Failure < 15 mL/min/1.73m2 *Relative to young adult level Estimated glomerular filtration rate is determined by the 2020 CKD-EPI equation recommended by the National Kidney Foundation (A Unifying Approach to GFR Estimation: Recommendations of the NKF-ASK Task Force on Reassessing the Inclusion of Race in Diagnosing Kidney Disease, JASN 2020). The CKD-EPI equation should not be used for patients with unstable renal function and has not been validated in children and those over 70. Current interpretive data was last reviewed 2020. Blood 04/17/2024 11:5 8 AM BODYBUILDER 04/17/2024 11:58 AM BODYBUILDER Alexis Flood MD LAB BLOOD ORDERABLES Destiny l Result Performing Organization Address [facility] Co de Phone Number BECCA [phone] [place] [address] * Lipase (04/17/2024 11:58 AM BODYBUILDER) Lipase 38 10 - 99 Units/L Blood 04/17/2024 11:5 8 AM BODYBUILDER 04/17/2024 11:58 AM BODYBUILDER Alexis Flood MD LAB BLOOD ORDERABLES Destiny l Result Performing Organization Address [facility] Co de Phone Number BECCA [phone] [facility] [place] [address] * Amylase (04/17/2024 11:58 AM BODYBUILDER) Amylase 59 30 - 99 Units/L Blood 04/17/2024 11:5 8 AM BODYBUILDER 04/17/2024 11:58 AM BODYBUILDER Alexis Flood MD LAB BLOOD ORDERABLES Destiny l Result Performing Organization Address [facility]/ZIP Co de Phone Number BECCA [address] [place] [address] * Comprehensive metabolic panel (04/17/2024 11:58 AM BODYBUILDER) Sodium 142 135 - 145 mmol/L Potassium, pl 3.9 3.3 - 4.9 mmol/L [facility] Chloride 108 97 - 110 mmol/L [facility] CO2 25 22 - 32 mmol/L [facility] Anion gap 9 2 - 15 mmol/L [facility] BUN 16 6 - 25 mg/dL [facility] Creatinine 0.68 0.60 - 1.10 mg/dL [facility] Glucose 89 70 - 199 mg/dL [facility] Comment: Interpretive Data Fasting glucose >/= 126 mg/dl is diagnostic for diabetes. Fasting is defined as no caloric intake for at least 8 hours. Fasting glucose between 100 mg/dl to 125 mg/dl is diagnostic of prediabetes. In a patient with classic symptoms of hyperglycemia or hyperglycemic crisis, a random glucose >/= 200 mg/dl is diagnostic for diabetes. In the absence of unequivocal hyperglycemia, results should be confirmed by repeat testing. The classification and Diagnosis of Diabetes Diabetes Care 2021; 46: S19-S40. Current interpretive data was last revised 2022. Calcium 9.2 8.5 - 10.3 mg/dL [facility] Bilirubin, total 0.3 0.1 - 1.2 mg/dL [facility] Protein, pl 7.0 6.5 - 8.5 g/dL [facility] Albumin 4.1 3.5 - 5.0 g/dL [facility] Alk phos 70 40 - 130 Units/L [facility] ALT 31 7 - 45 Units/L [facility] AST 32 10 - 45 Units/L [facility] Blood 04/17/2024 11:5 8 AM BODYBUILDER 04/17/2024 11:58 AM BODYBUILDER us Alexis Flood MD LAB BLOOD ORDERABLES Destiny hampton Result BECCA RICARDO [address] [place] [address] * US Abdomen Complete (04/17/2024 10:46 AM BODYBUILDER) Anatomical Region Laterality Modality Abdomen N/A Ultrasound 04/17/2024 11:5 9 AM BODYBUILDER Impressions 04/17/2024 11:59 AM BODYBUILDER Unremarkable exam without cholelithiasis or acute cholecystitis. No hepatic lesions or biliary distention. Electronically signed by: Shaunna Valadez M.D. Narrative 04/17/2024 11:59 AM BODYBUILDER EXAMINATION: ABDOMINAL ULTRASOUND, COMPLETE Date: 04/17/2024 10:30 AM History: dyspepsia Comparison: None. Findings: The gallbladder wall thickness of nonspecific 2 mm. There is no cholelithiasis or pericholecystic fluid and no sonographic Garibay's sign was elicited. . The liver measures 15.8 cm in length. The hepatic echogenicity is normal. There is no intrahepatic biliary dilatation. . The common bile duct measures 3 mm in diameter. The portal venous flow is hepatopetal. The visualized portions of the pancreatic body and head demonstrate normal echogenicity. The spleen measures 10.3 cm. The splenic echogenicity is homogeneous.. The right kidney measures 10.0 x 5.0 cm. The left kidney measures 10.1 x 5.6 cm. A 2 cm left renal cyst is seen. No hydronephrosis noted.. The visualized portions of the aorta and inferior vena cava appear normal. There is no free intraperitoneal fluid. Procedure Note Shaunna Valadez MD - 04/17/2024 EXAMINATION: ABDOMINAL ULTRASOUND, COMPLETE Date: 04/17/2024 10:30 AM History: dyspepsia Comparison: None. Findings: The gallbladder wall thickness of nonspecific 2 mm. There is no cholelithiasis or pericholecystic fluid and no sonographic Garibay's sign was elicited. . The liver measures 15.8 cm in length. The hepatic echogenicity is normal. There is no intrahepatic biliary dilatation. . The common bile duct measures 3 mm in diameter. The portal venous flow is hepatopetal. The visualized portions of the pancreatic body and head demonstrate normal echogenicity. The spleen measures 10.3 cm. The splenic echogenicity is homogeneous.. The right kidney measures 10.0 x 5.0 cm. The left kidney measures 10.1 x 5.6 cm. A 2 cm left renal cyst is seen. No hydronephrosis noted.. The visualized portions of the aorta and inferior vena cava appear normal. There is no free intraperitoneal fluid. IMPRESSION: Unremarkable exam without cholelithiasis or acute cholecystitis. No hepatic lesions or biliary distention. Electronically signed by: Shaunna Valadez M.D. Alexis Flood MD [facility] US PROCEDURES Final R esult * XR Hip Left 2+ Vw (04/17/2024 10:33 AM BODYBUILDER) Anatomical Region Laterality Modality Lower Extremities, Hip, Pelvis Left C omputed Radiography 04/17/2024 11:0 2 AM BODYBUILDER Impressions 04/17/2024 11:02 AM BODYBUILDER No fracture seen. Electronically signed by: Javier Cotton M.D. Narrative 04/17/2024 11:02 AM BODYBUILDER EXAMINATION: XR HIP LEFT 2 OR 3 VIEWS HISTORY: The patient is a 63-year-old female who presents with pain in the left hip. TECHNIQUE: AP and frog-leg view of the left hip. FINDINGS: No fracture or dislocation is seen. The left hip joint is well preserved. Procedure Note Javier Cotton MD - 04/17/2024 EXAMINATION: XR HIP LEFT 2 OR 3 VIEWS HISTORY: The patient is a 63-year-old female who presents with pain in the left hip. TECHNIQUE: AP and frog-leg view of the left hip. FINDINGS: No fracture or dislocation is seen. The left hip joint is well preserved. IMPRESSION: No fracture seen. Electronically signed by: Javier Cotton M.D. Alexis Flood MD [facility] XR PROCEDURES Final R esult * Screening Mammogram Bilateral W Robbi (12/14/2023 2:20 PM CDT) Anatomical Region Laterality Modality Breast Bilateral Mammography Narrative 12/15/2023 12:45 PM CDT Mammogram Technique: Bilateral Digital Breast Tomosynthesis, Bilateral C-view 2D Screening mammogram. Views obtained: bilateral craniocaudal and bilateral mediolateral oblique. Computer Aided Detection was performed. Mammogram Findings: The present examination has been compared to prior imaging studies performed at [facility] on 11/09/2020, 12/08/2021 and 12/12/2022. The breasts are heterogeneously dense, which may obscure small masses. There is no suspicious abnormality in either breast. Impression: There is no mammographic evidence of malignancy. Annual screening mammography is recommended. If supplemental screening is desired, breast MRI would be recommended in this patient with heterogeneously dense breasts. OVERALL FINAL ASSESSMENT: BI-RADS CATEGORY 1: Negative. Procedure Note Lacy Tuttle MD - 12/15/2023 Mammogram Technique: Bilateral Digital Breast Tomosynthesis, Bilateral C-view 2D Screening mammogram. Views obtained: bilateral craniocaudal and bilateral mediolateral oblique. Computer Aided Detection was performed. Mammogram Findings: The present examination has been compared to prior imaging studies performed at [facility] on 11/09/2020, 12/08/2021 and 12/12/2022. The breasts are heterogeneously dense, which may obscure small masses. There is no suspicious abnormality in either breast. Impression: There is no mammographic evidence of malignancy. Annual screening mammography is recommended. If supplemental screeningis desired, breast MRI would be recommended in this patient with heterogeneously dense breasts. OVERALL FINAL ASSESSMENT: BI-RADS CATEGORY 1: Negative. us Self Screening Mammogram IMG MAMMO PROCEDURES Fi nal Result * Colonoscopy (08/12/2022) Anatomical Region Laterality Modality Other us Historical Provider ENDOSCOPY PROCEDURES Destiny l Result from Last 3 Months or Most Recently Relevant to Health Maintenance Insurance [facility] [employer] [place] Care Teams Flour Mixer Relationship Specialty Start Date End Date Alexis Flood MD [address] [place] [address] PCP - General 06/02/08
--- OUTSIDE RECORDS SUMMARY | 2024-05-01 08:07 | XMS_ITS | Referral Summary ---
Author Organization [facility] [address] [facility] lt Address [address] [place] [address] Care Team Providers Care Tractor Trailer Technician Name Role Phone Alexis Flood MD Primary Care Provider [phone] Encounters Date Type Department Care Team Description 04/22/2024 Orders Only [facility] [address] [address] Alexis Flood MD Dyspepsia (Primary Dx) 04/17/2024 Results Follow-Up [facility] [address] [address] Alexis Flood MD 04/17/2024 11:30 AM FOOD ANALYST Lab [address] [address] Dyspepsia 04/17/2024 10:26 AM FOOD ANALYST - 04/17/2024 11:59 PM FOOD ANALYST Hospital Encounter [facility] [address] [place] [id number] Annual physical exam Discharge Disposition: Discharge to home or self care 04/17/2024 9:52 AM FOOD ANALYST - 04/17/2024 11:59 PM FOOD ANALYST Hospital Encounter [facility] ` [address] [place] [address] Dyspepsia Discharge Disposition: Discharge to home or self care 04/09/2024 Telephone [facility] Primary Care at [address] [address] Alexis Flood MD 04/09/2024 1:15 PM FOOD ANALYST Office Visit [facility] at [address] [address] Alexis Flood MD Dyspepsia (Primary Dx); Adjustment disorder with anxious mood; BMI 26.0-26.9,adult from Last 3 Months Allergies No known active allergies Medications ergocalciferol (VITAMIN D) 50,000 unit capsule TAKE 1 CAPSULE BY MOUTH WEEKLY 03/14/2024 Active omeprazole (PriLOSEC) 40 mg capsule Take 1 capsule (40 mg total) by mouth daily Active Active Problems Problem Noted Date Diagnosed Date Dyspepsia 04/21/2024 Assessment & Plan (04/21/2024 10:31 AM FOOD ANALYST): Reviewed differnetial with patient. Reivewed anatomy fo area of ttp and will monitor respnose. Will check with abdominal ultrasound and then continue on labwork to look for pancreatic abnormalties. Reivewed red falg s/s. Discussed differential to include PUD, biliary, GERD, gastritis, etc. Adjustment disorder with anxious mood 04/21/2024 Assessment & Plan (04/21/2024 10:31 AM FOOD ANALYST): Good insight into increased stressors. Reivewed work and sleep hygiene. Montior response. BMI 26.0-26.9,adult 04/21/2024 Osteoarthritis of carpometacarpal joint of thumb 04/22/2015 Overview (05/27/2016): Carpometacarpal thumb joint osteoarthritis Urinary tract infection 10/21/2014 Overview (05/27/2016): UTI (urinary tract infection) Immunizations Immunization Administration Dates Next Due Influenza, Quadrivalent, Spl it, Preservative Free, Intramuscular 12/12/2017,12/12/2017 Influenza, Trivalent, High D ose, Split, Preservative Free, Intramuscular 02/04/2016,02/04/2016 Influenza, Trivalent, Preser vative Free, Intramuscular 03/05/2012 Influenza, Unspecified 09/11/2023(Deferr ed: Patient Refused),10/21/2022(Deferred: Patient Refused),01/02/2022(Deferred: Patient Refused),12/01/2020,12/02/2019, 019,04/19/2018,04/19/2018,01/03/2017,1 03/05/2016,02/04/2016 Pfizer SARS-CoV-2 Monovalent Vaccination (12+ Yrs) PURPLE 01/23/2023,11/17/2021 Pneumococcal Conjugate Pcv21 04/07/2024 Tdap 01/12/2009,01/12/2009 ZOSTER Recombinant 07/20/2018, 9,04/19/2018,04/19 Social History Tobacco Use Types Packs/Day Years [...] on file Legal Sex Female 11:55 PM FOOD ANALYST Gender Identity Not on file Sexual Orientation Not on file Last Filed Vital Signs Vital Sign Reading Time Taken Comments Blood Pressure 132/70 04/09/2024 1:17 PM FOOD ANALYST Pulse 70 04/09/2024 1:17 PM FOOD ANALYST Temperature 36.8 C (98.2 F) 04/09/2024 1:17 PM FOOD ANALYST Respiratory Rate 16 09/11/2023 7:58 AM CDT Oxygen Saturation 98% 04/09/2024 1:17 PM FOOD ANALYST Inhaled Oxygen Concentration - - Weight 66.1 kg (145 lb 11.2 oz) 04/09/2024 1:17 PM FOOD ANALYST Height 157.5 cm (5' 2 ) 04/09/2024 1:17 PM FOOD ANALYST Body Mass Index 26.65 04/09/2024 1:17 PM FOOD ANALYST Plan of Treatment Not on file Procedures Procedure Name Priority Date/Time Associated Diagnosis Comments DIFFERENTIAL AUTO Routine 04/17/2024 11: 59 AM FOOD ANALYST Dyspepsia CBC WITH AUTO DIFFERENTIAL Routine 04/17/2024 11:59 AM FOOD ANALYST Dyspepsia EGFR Routine 04/17/2024 11:58 AM FOOD ANALYST Dyspepsia COMPREHENSIVE METABOLIC PANEL Routine 04/17/2024 11:58 AM FOOD ANALYST Dyspepsia AMYLASE Routine 04/17/2024 11:58 AM FOOD ANALYST Dyspepsia LIPASE Routine 04/17/2024 11:58 AM FOOD ANALYST Dyspepsia US ABDOMEN COMPLETE Schedule Routine, Read Routine (OP Routine) 04/17/2024 10:46 AM FOOD ANALYST Dyspepsia XR HIP LEFT 2 OR 3 VIEWS Schedule Routine, Read Routine (OP Routine) 04/17/2024 10:33 AM FOOD ANALYST Annual physical exam SCREENING MAMMOGRAM BILATERAL W STORMY Schedule Routine, Read Routine (OP Routine) 12/14/2023 2:20 PM CDT Screening mammogram, encounter for COLONOSCOPY Routine 08/12/2022 from Last 3 Months or Most Recently Relevant to Health Maintenance Results * Differential, auto (04/17/2024 11:59 AM FOOD ANALYST) Neutrophil abs 3.0 1.5 - 6.5 K/cumm Imm gran abs 0.0 0.0 - 0.1 K/cumm [facility] Lymphocyte abs 1.6 0.8 - 3.3 K/cumm [facility] Monocyte abs 0.5 0.2 - 0.8 K/cumm [facility] Eosinophil abs 0.1 0.0 - 0.5 K/cumm [facility] Basophil abs 0.1 0.0 - 0.1 K/cumm [facility] Neutrophil pct 56.9 % [facility] Comment: Interpretive Data Percent cell count reference ranges are not reported, since discordance with absolute values may lead to misinterpretation of CBC data. Current Interpretive Data was last revised on 2017. Imm gran pct 0.2 % [facility] Comment: Interpretive Data Percent cell count reference ranges are not reported, since discordance with absolute values may lead to misinterpretation of CBC data. Current Interpretive Data was last revised on 2017. Lymphocyte pct 30.1 % [facility] Comment: Interpretive Data Percent cell count reference ranges are not reported, since discordance with absolute values may lead to misinterpretation of CBC data. Current Interpretive Data was last revised on 2017. Monocyte pct 9.1 % [facility] Comment: Interpretive Data Percent cell count reference ranges are not reported, since discordance with absolute values may lead to misinterpretation of CBC data. Current Interpretive Data was last revised on 2017. Eosinophil pct 2.3 % [facility] Comment: Interpretive Data Percent cell count reference ranges are not reported, since discordance with absolute values may lead to misinterpretation of CBC data. Current Interpretive Data was last revised on 2017. Basophil pct 1.4 % [facility] Comment: Interpretive Data Percent cell count reference ranges are not reported, since discordance with absolute values may lead to misinterpretation of CBC data. Current Interpretive Data was last revised on 2017. Blood 04/17/2024 11:5 9 AM FOOD ANALYST 04/17/2024 11:59 AM FOOD ANALYST us Alexis Flood MD LAB BLOOD ORDERABLES Destiny l Result [facility] [address] [place] [address] * (ABNORMAL) CBC with auto differential (04/17/2024 11:59 AM FOOD ANALYST) WBC 5.2 3.8 - 9.9 K/cumm Hgb 12.2 11.9 - 15.5 g/dL [facility] Hct 39.5 35.6 - 45.5 % [facility] Plt 257 150 - 400 K/cumm [facility] MPV 9.5 9.1 - 12.3 fL [facility] RBC 4.53 3.90 - 5.20 M/cumm [facility] MCV 87.2 81.3 - 96.4 fL [facility] MCH 26.9(L) 27.1 - 33.3 pg [facility] MCHC 30.9(L) 32.3 - 35.7 g/dL [facility] RDW CV 13.7 11.1 - 14.9 % [facility] RDW SD 43.7 35.7 - 48.1 fL [facility] NRBC abs 0.00 0.00 - 0.01 K/cumm [facility] Blood 04/17/2024 11:5 9 AM FOOD ANALYST 04/17/2024 11:59 AM FOOD ANALYST Alexis Flood MD LAB BLOOD ORDERABLES Destiny l Result [facility] [address] [place] [address] * eGFR (04/17/2024 11:58 AM FOOD ANALYST) eGFR >90 >=60 mL/min/1. 73 m2 Comment: [...] of Race in Diagnosing Kidney Disease, JASN 202). The CKD-EPI equation should not be used for patients with unstable renal function and has not been validated in children and those over 70. Current interpretive data was last reviewed 2020. Blood 04/17/2024 11:5 8 AM FOOD ANALYST 04/17/2024 11:58 AM FOOD ANALYST Alexis Flood MD LAB BLOOD ORDERABLES Destiny l Result Performing Organization Address City/[facility]/ZIP Co de Phone Number BECCA RICARDO [address] [facility] [place] [address] * Lipase (04/17/2024 11:58 AM FOOD ANALYST) Lipase 38 10 - 99 Units/L Blood 04/17/2024 11:5 8 AM FOOD ANALYST 04/17/2024 11:58 AM FOOD ANALYST Alexis Flood MD LAB BLOOD ORDERABLES Destiny l Result Performing Organization Address [facility] Co de Phone Number BECCA RICARDO [address] [address] [facility] [place] [address] * Amylase (04/17/2024 11:58 AM FOOD ANALYST) Amylase 59 30 - 99 Units/L Blood 04/17/2024 11:5 8 AM FOOD ANALYST 04/17/2024 11:58 AM FOOD ANALYST Alexis Flood MD LAB BLOOD ORDERABLES Destiny l Result Performing Organization Address [facility] Co de Phone Number BECCA RICARDO [address] [address] [facility] [place] [address] * Comprehensive metabolic panel (04/17/2024 11:58 AM FOOD ANALYST) Sodium 142 135 - 145 mmol/L Potassium, pl 3.9 3.3 - 4.9 mmol/L [facility] Chloride 108 97 - 110 mmol/L [facility] CO2 25 22 - 32 mmol/L [facility] Anion gap 9 2 - 15 mmol/L [facility] BUN 16 6 - 25 mg/dL [facility] Creatinine 0.68 0.60 - 1.10 mg/dL [facility] Glucose 89 70 - 199 mg/dL [facility] Comment: Interpretive Data Fasting glucose >/= 126 [...] [facility] Blood 04/17/2024 11:5 8 AM FOOD ANALYST 04/17/2024 11:58 AM FOOD ANALYST us Alexis Flood MD LAB BLOOD ORDERABLES Destiny hampton Result [facility] [address] [place] [address] * US Abdomen Complete (04/17/2024 10:46 AM FOOD ANALYST) Anatomical Region Laterality Modality Abdomen N/A Ultrasound 04/17/2024 11:5 9 AM FOOD ANALYST Impressions 04/17/2024 11:59 AM FOOD ANALYST Unremarkable exam without cholelithiasis or acute cholecystitis. No hepatic lesions or biliary distention. Electronically signed by: Shaunna Valadez M.D. Narrative 04/17/2024 11:59 AM FOOD ANALYST EXAMINATION: ABDOMINAL ULTRASOUND, COMPLETE Date: 04/17/2024 10:30 [...] distention. Electronically signed by: Shaunna Valadez M.D. us Alexis Flood MD [facility] US PROCEDURES Final R esult * XR Hip Left 2+ Vw (04/17/2024 10:33 AM FOOD ANALYST) Anatomical Region Laterality Modality Lower Extremities, Hip, Pelvis Left C omputed Radiography 04/17/2024 11:0 2 AM FOOD ANALYST Impressions 04/17/2024 11:02 AM FOOD ANALYST No fracture seen. Electronically signed by: Javier Cotton M.D. Narrative 04/17/2024 11:02 AM FOOD ANALYST EXAMINATION: XR HIP LEFT 2 OR 3 [...] seen. Electronically signed by: Javier Cotton M.D. us Alexis Flood MD IMG XR PROCEDURES Final R esult * Screening Mammogram Bilateral W Stormy (12/14/2023 2:20 PM CDT) Anatomical Region Laterality Modality Breast Bilateral Mammography Narrative 12/15/2023 12:45 PM CDT Mammogram Technique: Bilateral Digital Breast Tomosynthesis, Bilateral C-view 2D Screening mammogram. Views obtained: bilateral craniocaudal and bilateral mediolateral oblique. Computer Aided Detection was performed. Mammogram Findings: The present examination has been compared to prior imaging studies performed at [facility] on 11/09/2020, 12/08/2021 and 12/12/2022. The breasts [...] compared to prior imaging studies performed at [facility] on 11/09/2020, 12/08/2021 and 12/12/2022. The breasts [...] Colonoscopy (08/12/2022) Anatomical Region Laterality Modality Other [facility] Provider ENDOSCOPY PROCEDURES Destiny l Result from Last 3 Months or Most Recently Relevant to Health Maintenance Insurance [facility] [employer] [facility] [place] Care Teams Tractor Trailer Technician Relationship Specialty Start Date End Date Alexis Flood MD [address] [place] [address] PCP - General 06/02/08
== END 2024-05-01 08:01 | disposition home or self-care (01) ==
LOC: ANHIMG 08:02
PROVIDERS: PCP Family Medicine; Visit Provider Obstetrics & Gynecology Gynecology
DX: Z78.0 Asymptomatic menopausal state (principal); M85.852 Other specified disorders of bone density and structure, left thigh; M85.851 Other specified disorders of bone density and structure, right thigh
CPT/HCPCS: 77080

== ENCOUNTER 2024-05-07 09:56 | Outpatient (CLI) | payer OTHER, SELFPAY ==
[2024-05-07 11:03] LABS: CRP < 0.5 mg/dL (<1.0)
--- OUTSIDE RECORDS SUMMARY | 2024-05-07 11:04 | XMS_ITS | Clinical Summary ---
Author Organization [facility] [employer] Address [address] [place] [address] Care Team Providers Care Meter Installer Name Role Phone Alexis Flood MD Primary Care Provider [phone] [phone] Source Comments [facility] [employer],non-owned Affiliates and Associated Physician Practices is amultiple site organization consisting of ambulatory clinics and hospital sitesin [place], [place], [place] and [place]. This disclosure is being madepursuant to the Care Everywhere program and may not contain all information available regarding this patient. Last updated 17.[facility] [employer] Allergies No known active allergies Medications * [...] Comments Blood Pressure 124/84 03/30/2023 11:47 AM CURB SETTER Pulse 71 04/23/2020 12:07 PM CURB SETTER Temperature 36.7 C (98.1 F) 03/30/2023 11:47 AM CURB SETTER Respiratory Rate - - Oxygen Saturation 98% 04/23/2020 12:07 PM CURB SETTER Inhaled Oxygen Concentration - - Weight 65.3 kg (144 lb) 03/30/2023 11:47 AM CURB SETTER Height 157.5 cm (5' 2.01 ) 03/30/2023 11:[address] Body Mass Index 26.33 03/30/2023 11:47 AM CURB SETTER Plan of Treatment Health Maintenance Due Date [...] age to complete this topic Care Teams Meter Installer Relationship Specialty Start Date End Date Alexis Flood MD [address] [place] [address] PCP - General 07/29/19
--- OUTSIDE RECORDS SUMMARY | 2024-05-07 11:04 | XMS_ITS | Referral Summary ---
Author Organization [facility] [address] [facility] lt Address [address] [place] [address] Care Team Providers Care Sales And Retail Management Recruiter Name Role Phone Alexis Flood MD Primary Care Provider [phone] [phone] Encounters Date Type Department Care Team Description 05/02/2024 Orders Only [facility] [address] [phone] ProviderJose MD 04/22/2024 Orders Only [facility] [address] [phone] Alexis Flood MD Dyspepsia (Primary Dx) 04/17/2024 Results [facility]-Up [facility] [address] [phone] Alexis Flood MD 04/17/2024 11:30 AM BUSINESS CHANGE MANAGER Lab [address] [address] Dyspepsia 04/17/2024 10:26 AM BUSINESS CHANGE MANAGER - 04/17/2024 11:59 PM BUSINESS CHANGE MANAGER Hospital Encounter [facility] [address] [place] [address] Annual physical exam Discharge Disposition: Discharge to home or self care 04/17/2024 9:52 AM BUSINESS CHANGE MANAGER - 04/17/2024 11:59 PM BUSINESS CHANGE MANAGER Hospital Encounter [facility] ` [address] [place] [address] Dyspepsia Discharge Disposition: Discharge to home or self care 04/09/2024 Telephone [facility] at [address] [phone] Alexis Flood MD 04/09/2024 1:15 PM BUSINESS CHANGE MANAGER Office Visit [facility] at [address] [phone] Alexis Flood MD Dyspepsia (Primary [...] 04/21/2024 Assessment & Plan (04/21/2024 10:31 AM BUSINESS CHANGE MANAGER): Reviewed differnetial with patient. Reivewed anatomy fo area of ttp and will monitor respnose. Will check with abdominal ultrasound and then continue on labwork to look for pancreatic abnormalties. Reivewed red falg s/s. Discussed differential to include PUD, biliary, GERD, gastritis, etc. Adjustment disorder with anxious mood 04/21/2024 Assessment & Plan (04/21/2024 10:31 AM BUSINESS CHANGE MANAGER): Good insight into increased stressors. Reivewed work [...] on file Legal Sex Female 11:55 PM BUSINESS CHANGE MANAGER Gender Identity Not on file Sexual Orientation Not on file Last Filed Vital Signs Vital Sign Reading Time Taken Comments Blood Pressure 132/70 04/09/2024 1:17 PM BUSINESS CHANGE MANAGER Pulse 70 04/09/2024 1:17 PM BUSINESS CHANGE MANAGER Temperature 36.8 C (98.2 F) 04/09/2024 1:17 PM BUSINESS CHANGE MANAGER Respiratory Rate 16 09/11/2023 7:58 AM CDT Oxygen Saturation 98% 04/09/2024 1:17 PM BUSINESS CHANGE MANAGER Inhaled Oxygen Concentration - - Weight 66.1 kg (145 lb 11.2 oz) 04/09/2024 1:17 PM BUSINESS CHANGE MANAGER Height 157.5 cm (5' 2 ) 04/09/2024 1:17 PM BUSINESS CHANGE MANAGER Body Mass Index 26.65 04/09/2024 1:17 PM BUSINESS CHANGE MANAGER Plan of Treatment Not on file Procedures Procedure Name Priority Date/Time Associated Diagnosis Comments HM DEXA SCAN Routine 05/01/2024 11:43 AM CDT DIFFERENTIAL AUTO Routine 04/17/2024 11: 59 AM BUSINESS CHANGE MANAGER Dyspepsia CBC WITH AUTO DIFFERENTIAL Routine 04/17/2024 11:59 AM BUSINESS CHANGE MANAGER Dyspepsia EGFR Routine 04/17/2024 11:58 AM BUSINESS CHANGE MANAGER Dyspepsia COMPREHENSIVE METABOLIC PANEL Routine 04/17/2024 11:58 AM BUSINESS CHANGE MANAGER Dyspepsia AMYLASE Routine 04/17/2024 11:58 AM BUSINESS CHANGE MANAGER Dyspepsia LIPASE Routine 04/17/2024 11:58 AM BUSINESS CHANGE MANAGER Dyspepsia US ABDOMEN COMPLETE Schedule Routine, Read Routine (OP Routine) 04/17/2024 10:46 AM BUSINESS CHANGE MANAGER Dyspepsia XR HIP LEFT 2 OR 3 VIEWS Schedule Routine, Read Routine (OP Routine) 04/17/2024 10:33 AM BUSINESS CHANGE MANAGER Annual physical exam SCREENING MAMMOGRAM BILATERAL W ROBBI Schedule Routine, Read Routine (OP Routine) 12/14/2023 2:20 PM CDT Screening mammogram, encounter for COLONOSCOPY Routine 08/12/2022 from Last 3 Months or Most Recently Relevant to Health Maintenance Results * HM DEXA SCAN (05/01/2024 11:43 AM CDT) us Historical Provider HEALTH MAINTENANCE Final Result * Differential, auto (04/17/2024 11:59 AM BUSINESS CHANGE MANAGER) Neutrophil abs 3.0 1.5 - 6.5 K/cumm Imm gran abs 0.0 0.0 - 0.1 K/cumm [facility] Lymphocyte abs 1.6 0.8 - 3.3 K/cumm [facility] Monocyte abs 0.5 0.2 - 0.8 K/cumm [facility] Eosinophil abs 0.1 0.0 - 0.5 K/cumm [facility] Basophil abs 0.1 0.0 - 0.1 K/cumm [facility] Neutrophil pct 56.9 % [facility] Comment: Interpretive Data Percent cell count reference ranges are not reported, since discordance with absolute values may lead to misinterpretation of CBC data. Current Interpretive Data was last revised on 2017. Imm gran pct 0.2 % [facility] Comment: Interpretive Data Percent cell count reference ranges are not reported, since discordance with absolute values may lead to misinterpretation of CBC data. Current Interpretive Data was last revised on 2017. Lymphocyte pct 30.1 % [facility] Comment: Interpretive Data Percent cell count reference ranges are not reported, since discordance with absolute values may lead to misinterpretation of CBC data. Current Interpretive Data was last revised on 2017. Monocyte pct 9.1 % [facility] Comment: Interpretive Data Percent cell count reference ranges are not reported, since discordance with absolute values may lead to misinterpretation of CBC data. Current Interpretive Data was last revised on 2017. Eosinophil pct 2.3 % [facility] Comment: Interpretive Data Percent cell count reference ranges are not reported, since discordance with absolute values may lead to misinterpretation of CBC data. Current Interpretive Data was last revised on 2017. Basophil pct 1.4 % [facility] Comment: Interpretive Data Percent cell count reference ranges are not reported, since discordance with absolute values may lead to misinterpretation of CBC data. Current Interpretive Data was last revised on 2017. Blood 04/17/2024 11:5 9 AM BUSINESS CHANGE MANAGER 04/17/2024 11:59 AM BUSINESS CHANGE MANAGER us Alexis Flood MD LAB BLOOD ORDERABLES Destiny hampton Result BECCA RICARDO [address] [place] [address] * (ABNORMAL) CBC with auto differential (04/17/2024 11:59 AM BUSINESS CHANGE MANAGER) WBC 5.2 3.8 - 9.9 K/cumm Hgb 12.2 11.9 - 15.5 g/dL [facility] Hct 39.5 35.6 - 45.5 % [facility] Plt 257 150 - 400 K/cumm [facility] MPV 9.5 9.1 - 12.3 fL [facility] RBC 4.53 3.90 - 5.20 M/cumm [facility] MCV 87.2 81.3 - 96.4 fL [facility] MCH 26.9(L) 27.1 - 33.3 pg [facility] MCHC 30.9(L) 32.3 - 35.7 g/dL [facility] RDW CV 13.7 11.1 - 14.9 % [facility] RDW SD 43.7 35.7 - 48.1 fL [facility] NRBC abs 0.00 0.00 - 0.01 K/cumm [facility] Blood 04/17/2024 11:5 9 AM BUSINESS CHANGE MANAGER 04/17/2024 11:59 AM BUSINESS CHANGE MANAGER us Alexis Flood MD LAB BLOOD ORDERABLES Destiny hampton Result [facility] [address] [address] [place] [address] * eGFR (04/17/2024 11:58 AM BUSINESS CHANGE MANAGER) Pathologist [facility] eGFR >90 >=60 mL/min/1. 73 m2 Comment: [...] of Race in Diagnosing Kidney Disease, JASN 2021). The CKD-EPI equation should not be used for patients with unstable renal function and has not been validated in children and those over 70. Current interpretive data was last reviewed 2020. Blood 04/17/2024 11:5 8 AM BUSINESS CHANGE MANAGER 04/17/2024 11:58 AM BUSINESS CHANGE MANAGER Alexis Flood MD LAB BLOOD ORDERABLES Destiny l Result Performing Organization Address City/[facility]/ZIP Co de Phone Number BECCA [address] [address] [place] [address] * Lipase (04/17/2024 11:58 AM BUSINESS CHANGE MANAGER) Lipase 38 10 - 99 Units/L Blood 04/17/2024 11:5 8 AM BUSINESS CHANGE MANAGER 04/17/2024 11:58 AM BUSINESS CHANGE MANAGER Alexis Flood MD LAB BLOOD ORDERABLES Destiny l Result Performing Organization Address [facility] Co de Phone Number JOEYMOLLY [address] [address] [place] [address] * Amylase (04/17/2024 11:58 AM BUSINESS CHANGE MANAGER) Amylase 59 30 - 99 Units/L Blood 04/17/2024 11:5 8 AM BUSINESS CHANGE MANAGER 04/17/2024 11:58 AM BUSINESS CHANGE MANAGER Alexis Flood MD LAB BLOOD ORDERABLES Destiny l Result Performing Organization Address City/[facility] Co de Phone Number BECCA [address] [address] Department [place] [employer] [place] [address] * Comprehensive metabolic panel (04/17/2024 11:58 AM BUSINESS CHANGE MANAGER) Sodium 142 135 - 145 mmol/L Potassium, pl 3.9 3.3 - 4.9 mmol/L [facility] Chloride 108 97 - 110 mmol/L [facility] CO2 25 22 - 32 mmol/L [facility] [...] classification and Diagnosis of Diabetes Diabetes Care 202; 46: S19-S40. Current interpretive data was last [...] [facility] Blood 04/17/2024 11:5 8 AM BUSINESS CHANGE MANAGER 04/17/2024 11:58 AM BUSINESS CHANGE MANAGER us Alexis Flood MD LAB BLOOD ORDERABLES Destiny l Result [facility] [address] [address] [place] [address] * US Abdomen Complete (04/17/2024 10:46 AM BUSINESS CHANGE MANAGER) Anatomical Region Laterality Modality Abdomen N/A Ultrasound 04/17/2024 11:5 9 AM BUSINESS CHANGE MANAGER Impressions 04/17/2024 11:59 AM BUSINESS CHANGE MANAGER Unremarkable exam without cholelithiasis or acute cholecystitis. No hepatic lesions or biliary distention. Electronically signed by: Shaunna Valadez M.D. Narrative 04/17/2024 11:59 AM BUSINESS CHANGE MANAGER EXAMINATION: ABDOMINAL ULTRASOUND, COMPLETE Date: 04/17/2024 10:30 [...] Shaunna Valadez M.D. us Alexis Flood MD IMG US PROCEDURES Final R esult * XR Hip Left 2+ Vw (04/17/2024 10:33 AM BUSINESS CHANGE MANAGER) Anatomical Region Laterality Modality Lower Extremities, Hip, Pelvis Left C omputed Radiography 04/17/2024 11:0 2 AM BUSINESS CHANGE MANAGER Impressions 04/17/2024 11:02 AM BUSINESS CHANGE MANAGER No fracture seen. Electronically signed by: Javier Cotton M.D. Narrative 04/17/2024 11:02 AM BUSINESS CHANGE MANAGER EXAMINATION: XR HIP LEFT 2 OR 3 [...] by: Javier Cotton M.D. Alexis Flood MD IMG XR PROCEDURES Final [...] compared to prior imaging studies performed at [facility] on 11/09/2020, 12/08/2021 and 12/12/2022. The breasts [...] compared to prior imaging studies performed at [facility] on 11/09/2020, 12/08/2021 and 12/12/2022. The breasts [...] Colonoscopy (08/12/2022) Anatomical Region Laterality Modality Other [facility] Provider ENDOSCOPY PROCEDURES Destiny l Result from Last 3 Months or Most Recently Relevant to Health Maintenance Insurance [facility] [place] Care Teams Sales And Retail Management Recruiter Relationship Specialty Start Date End Date Alexis Flood MD [address] [place] [address] PCP - General 06/02/08
--- OUTSIDE RECORDS SUMMARY | 2024-05-07 11:04 | XMS_ITS | Encounter Summary ---
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 Gender Identity Not on file Sexual Orientation Not on file documented as of this encounter Plan of Treatment Not on file documented as of this encounter Procedures Procedure Name Priority Date/Time Associated Diagnosis Comments HM DEXA SCAN Routine 05/01/2024 11:43 AM CDT documented in this encounter Results * HM DEXA SCAN (05/01/2024 11:43 AM CDT) Historical Provider HEALTH MAINTENANCE Final Result documented in this encounter Visit Diagnoses Not on filedocumented in this encounter Care Teams Commercial Insulator Relationship Specialty Start Date End Date Alexis Flood MD [address] [place] [address] PCP - General 06/02/08 documented as of this encounter
--- OUTSIDE RECORDS SUMMARY | 2024-05-07 11:04 | XMS_ITS | Clinical Summary ---
Author Organization [facility] [address] [facility] Address [address] [place] [address] Care Team Providers Care Responder Name Role Phone Alexis Flood MD Primary Care Provider [phone] [phone] Allergies No known active allergies Medications ergocalciferol (VITAMIN D) 50,000 unit capsule TAKE 1 CAPSULE BY MOUTH WEEKLY 03/14/2024 Active omeprazole (PriLOSEC) 40 mg capsule Take 1 capsule (40 mg total) by mouth daily Active Active Problems Problem Noted Date Diagnosed Date Dyspepsia 04/21/2024 Assessment & Plan (04/21/2024 10:31 AM DROP WIRER): Reviewed differnetial with patient. Reivewed anatomy fo area of ttp and will monitor respnose. Will check with abdominal ultrasound and then continue on labwork to look for pancreatic abnormalties. Reivewed red falg s/s. Discussed differential to include PUD, biliary, GERD, gastritis, etc. Adjustment disorder with anxious mood 04/21/2024 Assessment & Plan (04/21/2024 10:31 AM DROP WIRER): Good insight into increased stressors. Reivewed work and sleep hygiene. Montior response. BMI 26.0-26.9,adult 04/21/2024 Osteoarthritis of carpometacarpal joint of thumb 04/22/2015 Overview (05/27/2016): Carpometacarpal thumb joint osteoarthritis Urinary tract infection 10/21/2014 Overview (05/27/2016): UTI (urinary tract infection) Encounters Date Type Department Care Team Description 05/02/2024 Orders Only [facility] [address] [phone] ProviderJose MD 04/22/2024 Orders Only [facility] [address] [phone] Alexis Flood MD Dyspepsia (Primary Dx) 04/17/2024 11:30 AM DROP WIRER Lab [address] [address] Dyspepsia 04/17/2024 10:26 AM DROP WIRER - 04/17/2024 11:59 PM DROP WIRER Hospital Encounter [facility] [address] [place] [address] Annual physical exam Discharge Disposition: Discharge to home or self care 04/17/2024 9:52 AM DROP WIRER - 04/17/2024 11:59 PM DROP WIRER Hospital Encounter [facility] ` [address] [place] [address] Dyspepsia Discharge Disposition: Discharge to home or self care 04/17/2024 Results [facility] [address] [phone] Alexis Flood MD 04/09/2024 1:15 PM DROP WIRER Office Visit [facility] Primary Care at [address] [phone] Alexis Flood MD Dyspepsia (Primary Dx); Adjustment disorder with anxious mood; BMI 26.0-26.9,adult 04/09/2024 Telephone [facility] Primary Care at [address] [phone] Alexis Flood MD from Last [...] Surgery Date Site/Laterality Comments OTHER SURGICAL HISTORY 2006 fibroid cyst on cervix: outpatient surgery HYSTERECTOMY Partial 03/04/20 BLADDER SURGERY 02/09/22 sling Medical History Medical History Date Comments Hx Other Medical fibroid cyst on cervix Hx 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 Arthritis Arthritis; Comme nts: CLS 04/22/2015 - Family History Medical History Relation Name Comments COPD Brother 2 Kristopher Avila Early Brother 2 Kristopher Avlia Other Brother 2 Kristopher Avila Alive and well; Breast cancer Brother 3 Cancer -breast ; Cancer Father Gaurav Avila Diabetes Father Gaurav Avila Diabetes melli tus; Other Father Gaurav Avila Cancer -prosta te and bone sandra; /; Alzheimer's disease Maternal Grandmother Marylu Barragan mstein Alzheimer's disease Mother Marilin Avila Arthritis Mother Marilin Avila Memory loss Mother Marilin Avila Other Mother Marilin Avila Alive and well; Alzheimer's disease Mother's Sister 1 [place] Black Cancer Mother's Sister 1 [place] Black Cancer Mother's Sister 2 Milli Dominique Cancer Mother's Sister 3 Nafisa Lgy Cancer Sister 1 Sandy Vance Miscarriages / Stillbirths Sister 1 Sandy Vance Diabetes Sister 2 Keshia Taylor Relation Name Status Comments Brother 1 Alive Brother 2 Kristopher Avila Brother 3 Father Gaurav Avila Maternal Grandmother Marylu Virk Mother Marilin Avila Alive Mother's Sister 1 Jasmin Black Mother's Sister 2 Milli Dominique Mother's Sister 3 Nafisa Weiss Sister 1 Sandy Vance Sister 2 Keshia Claudia Social History Tobacco Use Types Packs/Day Years [...] on file Legal Sex Female 11:55 PM DROP WIRER Gender Identity Not on file Sexual Orientation Not on file Obstetrics History Last Filed Vital Signs Vital Sign Reading Time Taken Comments Blood Pressure 132/70 04/09/2024 1:17 PM DROP WIRER Pulse 70 04/09/2024 1:17 PM DROP WIRER Temperature 36.8 C (98.2 F) 04/09/2024 1:17 PM DROP WIRER Respiratory Rate 16 09/11/2023 7:58 AM CDT Oxygen Saturation 98% 04/09/2024 1:17 PM DROP WIRER Inhaled Oxygen Concentration - - Weight 66.1 kg (145 lb 11.2 oz) 04/09/2024 1:17 PM DROP WIRER Height 157.5 cm (5' 2 ) 04/09/2024 1:17 PM DROP WIRER Body Mass Index 26.65 04/09/2024 1:17 PM DROP WIRER Plan of Treatment Health Maintenance Due Date [...] DIFFERENTIAL AUTO Routine 04/17/2024 11: 59 AM DROP WIRER Dyspepsia CBC WITH AUTO DIFFERENTIAL Routine 04/17/2024 11:59 AM DROP WIRER Dyspepsia EGFR Routine 04/17/2024 11:58 AM DROP WIRER Dyspepsia COMPREHENSIVE METABOLIC PANEL Routine 04/17/2024 11:58 AM DROP WIRER Dyspepsia AMYLASE Routine 04/17/2024 11:58 AM DROP WIRER Dyspepsia LIPASE Routine 04/17/2024 11:58 AM DROP WIRER Dyspepsia US ABDOMEN COMPLETE Schedule Routine, Read Routine (OP Routine) 04/17/2024 10:46 AM DROP WIRER Dyspepsia XR HIP LEFT 2 OR 3 VIEWS Schedule Routine, Read Routine (OP Routine) 04/17/2024 10:33 AM DROP WIRER Annual physical exam SCREENING MAMMOGRAM BILATERAL W ROBBI Schedule Routine, Read Routine (OP Routine) 12/14/2023 2:20 PM CDT Screening mammogram, encounter for COLONOSCOPY Routine 08/12/2022 from Last 3 Months or Most Recently Relevant to Health Maintenance Results * HM DEXA SCAN (05/01/2024 11:43 AM CDT) us Historical Provider HEALTH MAINTENANCE Final Result * Differential, auto (04/17/2024 11:59 AM DROP WIRER) Neutrophil abs 3.0 1.5 - 6.5 K/cumm Imm gran abs 0.0 0.0 - 0.1 K/cumm [facility] Lymphocyte abs 1.6 0.8 - 3.3 K/cumm [facility] Monocyte abs 0.5 0.2 - 0.8 K/cumm [facility] Eosinophil abs 0.1 0.0 - 0.5 K/cumm [facility] Basophil abs 0.1 0.0 - 0.1 K/cumm [facility] Neutrophil pct 56.9 % [facility] Comment: Interpretive Data Percent cell count reference ranges are not reported, since discordance with absolute values may lead to misinterpretation of CBC data. Current Interpretive Data was last revised on 2017. Imm gran pct 0.2 % [facility] Comment: Interpretive Data Percent cell count reference ranges are not reported, since discordance with absolute values may lead to misinterpretation of CBC data. Current Interpretive Data was last revised on 2017. Lymphocyte pct 30.1 % [facility] Comment: Interpretive Data Percent cell count reference ranges are not reported, since discordance with absolute values may lead to misinterpretation of CBC data. Current Interpretive Data was last revised on 2017. Monocyte pct 9.1 % [facility] Comment: Interpretive Data Percent cell count reference ranges are not reported, since discordance with absolute values may lead to misinterpretation of CBC data. Current Interpretive Data was last revised on 2017. Eosinophil pct 2.3 % [facility] Comment: Interpretive Data Percent cell count reference [...] on 2017. Blood 04/17/2024 11:5 9 AM DROP WIRER 04/17/2024 11:59 AM DROP WIRER Alexis Flood MD LAB BLOOD ORDERABLES Destiny l Result Performing Organization Address City/[facility]/ZIP Co de Phone Number BECCA [address] [place] [address] * (ABNORMAL) CBC with auto differential (04/17/2024 11:59 AM DROP WIRER) WBC 5.2 3.8 - 9.9 K/cumm Hgb 12.2 11.9 - 15.5 g/dL [facility] Hct 39.5 35.6 - 45.5 % [facility] Plt 257 150 - 400 K/cumm [facility] MPV 9.5 9.1 - 12.3 fL [facility] RBC 4.53 3.90 - 5.20 M/cumm [facility] MCV 87.2 81.3 - 96.4 fL [facility] MCH 26.9(L) 27.1 - 33.3 pg [facility] MCHC 30.9(L) 32.3 - 35.7 g/dL [facility] RDW CV 13.7 11.1 - 14.9 % [facility] RDW SD 43.7 35.7 - 48.1 fL [facility] NRBC abs 0.00 0.00 - 0.01 K/cumm [facility] Blood 04/17/2024 11:5 9 AM DROP WIRER 04/17/2024 11:59 AM DROP WIRER Alexis Flood MD LAB BLOOD ORDERABLES Destiny l Result Performing Organization Address City/[facility]/ZIP Co de Phone Number BECCA [address] [address] [facility] [place] [address] * eGFR (04/17/2024 11:58 AM DROP WIRER) eGFR >90 >=60 mL/min/1. 73 m2 Comment: [...] reviewed 2020. Blood 04/17/2024 11:5 8 AM DROP WIRER 04/17/2024 11:58 AM DROP WIRER Alexis Flood MD LAB BLOOD ORDERABLES Destiny l Result BECCA [address] [address] Department [place] [address] * Lipase (04/17/2024 11:58 AM DROP WIRER) Pathologist [facility] Lipase 38 10 - 99 Units/L Blood 04/17/2024 11:5 8 AM DROP WIRER 04/17/2024 11:58 AM DROP WIRER Alexis Flood MD LAB BLOOD ORDERABLES Destiny l Result BECCA [address] [address] Department [place] [address] * Amylase (04/17/2024 11:58 AM DROP WIRER) Amylase 59 30 - 99 Units/L Blood 04/17/2024 11:5 8 AM DROP WIRER 04/17/2024 11:58 AM DROP WIRER us Alexis Flood MD LAB BLOOD ORDERABLES Destiny hampton Result [facility] [address] [address] Department [place] [address] * Comprehensive metabolic panel (04/17/2024 11:58 AM DROP WIRER) Sodium 142 135 - 145 mmol/L Potassium, [...] [facility] Blood 04/17/2024 11:5 8 AM DROP WIRER 04/17/2024 11:58 AM DROP WIRER us Alexis Flood MD LAB BLOOD ORDERABLES Destiny hampton Result BECCA RICARDO [address] [address] Department [place] [address] * US Abdomen Complete (04/17/2024 10:46 AM DROP WIRER) Anatomical Region Laterality Modality Abdomen N/A Ultrasound 04/17/2024 11:5 9 AM DROP WIRER Impressions 04/17/2024 11:59 AM DROP WIRER Unremarkable exam without cholelithiasis or acute cholecystitis. No hepatic lesions or biliary distention. Electronically signed by: Shaunna Valadez M.D. Narrative 04/17/2024 11:59 AM DROP WIRER EXAMINATION: ABDOMINAL ULTRASOUND, COMPLETE Date: 04/17/2024 10:30 [...] by: Shaunna Valadez M.D. Alexis Flood MD [facility] US PROCEDURES Final R esult * XR Hip Left 2+ Vw (04/17/2024 10:33 AM DROP WIRER) Anatomical Region Laterality Modality Lower Extremities, Hip, Pelvis Left C omputed Radiography 04/17/2024 11:0 2 AM DROP WIRER Impressions 04/17/2024 11:02 AM DROP WIRER No fracture seen. Electronically signed by: Javier Cotton M.D. Narrative 04/17/2024 11:02 AM DROP WIRER EXAMINATION: XR HIP LEFT 2 OR 3 [...] compared to prior imaging studies performed at [facility] on 11/09/2020, 12/08/2021 and 12/12/2022. The breasts [...] compared to prior imaging studies performed at [facility] on 11/09/2020, 12/08/2021 and 12/12/2022. The breasts [...] Most Recently Relevant to Health Maintenance Insurance [facility] Care Teams Responder Relationship Specialty Start Date End Date Alexis Flood MD [address] [place] [address] [facility] - General 06/02/08
--- OUTSIDE RECORDS SUMMARY | 2024-05-07 11:04 | XMS_ITS | Encounter Summary ---
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
[2024-05-07 13:18] LABS: Erythrocyte Sedimentation Rate 15 mm/hr (0-20)
[2024-05-10 02:37] LABS: Immunoglobulin A 71 mg/dL (70-320); TTG IGA AB <1.0 U/mL
== END 2024-05-07 09:57 | disposition home or self-care (01) ==
LOC: ANHLAB 09:58
PROVIDERS: PCP Family Medicine; Visit Provider Nurse Practitioner
DX: R14.2 Eructation (principal); R14.3 Flatulence; R14.0 Abdominal distension (gaseous)
CPT/HCPCS: 36415; 82784; 84443; 85652; 86140; 86364

== ENCOUNTER 2024-06-28 07:34 | Outpatient (CLI) | payer OTHER, SELFPAY ==
--- NOTE | ~2024-06-28 | CT_ITS ---
CT of the Abdomen and Pelvis: Indication: Abdominal pain Technique: 2.5 mm axial scans were obtained through the abdomen and pelvis following intravenous adm inistration of 100 cc of Omnipaque 350. Dose reduction technique was used on this scan by utilizing a utomated exposure control and iterative reconstruction technique. The dose-length product (DLP) was 3 86.42 mGy-cm. Findings: Scans through the lung bases are unremarkable. The liver, spleen, pancreas, gallbladder, right adrenal gland, and kidneys are within normal limits. 1.6 cm left adrenal nodule is indeterminate. No evidence of aortic aneurysm. No lymphadenopathy. No bowel obstruction or bowel wall thickening. There is no evidence to suggest acute appendicitis. Images through the pelvis were performed. Urinary bladder unremarkable. No pelvic mass seen. No ascit es. Impression: No acute abnormality. 1.6 cm indeterminate left adrenal nodule. Follow-up MR advised to attempt to confirm benign adenoma. Reviewed, dictated and finalized at [facility]. Impression: No acute abnormality. 1.6 cm indeterminate left adrenal nodule. Follow-up MR advised to attempt to co nfirm benign adenoma.
--- OUTSIDE RECORDS SUMMARY | 2024-06-28 07:40 | XMS_ITS | Clinical Summary ---
Author Organization [facility] Address [address] [facility] [place] [address] Care Team Providers Care Blood Bank Order Control Clerk Name Role Phone Alexis Flood MD Primary Care Provider [phone] Source Comments [facility],non-owned Affiliates and Associated Physician Practices is amultiple site organization consisting of ambulatory clinics and hospital sitesin [place], [place], [place] and [place]. This disclosure is being madepursuant to the Care Everywhere program and may not contain all information available regarding this patient. Last updated 17.[facility] Allergies No known active allergies Medications * Be aware that medications may not be up to date on this document. Alwaysverify current medications with the patient. Multiple Vitamins-Mineral s (ONE-A-DAY WOMENS PETITES) TABS Take 1 (one) [...] Overview (08/23/2019): UTI (urinary tract infection) Immunizations Immunization Administration Dates Next Due INFLUENZA VACCINE 12/02/2019,,04/19/2018,2016 [...] Recorded Patient Health Questionnaire-2 Score 4 03/27/2023 Comments No Sex and Gender Information Value Date Recorded Sex Assigned at Not on file Legal Sex Female 11:53 AM CDT Gender Identity Not on file Sexual Orientation Not on file Last Filed Vital Signs Vital Sign Reading Time Taken Comments Blood Pressure 124/84 03/30/2023 11:47 AM GAMEPLAY PROGRAMMER Pulse 71 04/23/2020 12:07 PM GAMEPLAY PROGRAMMER Temperature 36.7 C (98.1 F) 03/30/2023 11:47 AM GAMEPLAY PROGRAMMER Respiratory Rate - - Oxygen Saturation 98% 04/23/2020 12:07 PM GAMEPLAY PROGRAMMER Inhaled Oxygen Concentration - - Weight 65.3 kg (144 lb) 03/30/2023 11:47 AM GAMEPLAY PROGRAMMER Height 157.5 cm (5' 2.01 ) 03/30/2023 11:[address] Body Mass Index 26.33 03/30/2023 11:47 AM GAMEPLAY PROGRAMMER Plan of Treatment Health Maintenance Due Date [...] 2023 01/23/2023, 11/17/2021, 11/17/2021, Additional history exists DEPRESSION SCREENING 02/21/2024 INFLUENZA VACCINE (Season Ended) 2024 12/01/2020, 12/02/2019, 12/20/2018, Additional history exists MAMMOGRAM 12/12/2024 12/12/2022, 11/20, 12/08/2021, Additional history [...] on patient's age to complete this topic Insurance [employer] Care Teams Blood Bank Order Control Clerk Relationship Specialty Start Date End Date Alexis Flood MD [address] [place] [address] PCP - General 07/29/19
--- OUTSIDE RECORDS SUMMARY | 2024-06-28 07:41 | XMS_ITS | Referral Summary ---
Author Organization [facility] [address] [facility] lto Address [address] [place] [address] Care Team Providers Care Relocation Associate Name Role Phone Alexis lFood MD Primary Care Provider [phone] Encounters Date Type Department Care Team Description 05/07/2024 Orders Only [facility] Information Management [address] [place] [address] Scanning, Provider 05/02/2024 Orders Only [facility] [address] [address] ProviderJose MD 04/22/2024 Orders Only [facility] [address] [id number] Alexis Flood MD Dyspepsia (Primary Dx) 04/17/2024 Results Follow-Up [facility] [address] [id number] Alexis Flood MD 04/17/2024 11:30 AM TUNNEL FORM PLACING SUPERVISOR Lab [facility] [address] [place] [address] Dyspepsia 04/17/2024 10:26 AM TUNNEL FORM PLACING SUPERVISOR - 04/17/2024 11:59 PM TUNNEL FORM PLACING SUPERVISOR Hospital Encounter [facility] [id number] [place] [address] Annual physical exam Discharge Disposition: Discharge to home or self care 04/17/2024 9:52 AM TUNNEL FORM PLACING SUPERVISOR - 04/17/2024 11:59 PM TUNNEL FORM PLACING SUPERVISOR Hospital Encounter [facility] [address] [place] [address] Dyspepsia Discharge Disposition: Discharge to home or self care 04/09/2024 Telephone [facility] Primary Care at [address] [address] Alexis Flood MD 04/09/2024 1:15 PM TUNNEL FORM PLACING SUPERVISOR Office Visit [facility] Primary Care at [address] [address] Alexis Flood MD Dyspepsia (Primary [...] 04/21/2024 Assessment & Plan (04/21/2024 10:31 AM TUNNEL FORM PLACING SUPERVISOR): Reviewed differnetial with patient. Reivewed anatomy fo area of ttp and will monitor respnose. Will check with abdominal ultrasound and then continue on labwork to look for pancreatic abnormalties. Reivewed red falg s/s. Discussed differential to include PUD, biliary, GERD, gastritis, etc. Adjustment disorder with anxious mood 04/21/2024 Assessment & Plan (04/21/2024 10:31 AM TUNNEL FORM PLACING SUPERVISOR): Good insight into increased stressors. Reivewed work [...] on file Legal Sex Female 11:55 PM TUNNEL FORM PLACING SUPERVISOR Gender Identity Not on file Sexual Orientation Not on file Last Filed Vital Signs Vital Sign Reading Time Taken Comments Blood Pressure 132/70 04/09/2024 1:17 PM TUNNEL FORM PLACING SUPERVISOR Pulse 70 04/09/2024 1:17 PM TUNNEL FORM PLACING SUPERVISOR Temperature 36.8 C (98.2 F) 04/09/2024 1:17 PM TUNNEL FORM PLACING SUPERVISOR Respiratory Rate 16 09/11/2023 7:58 AM CDT Oxygen Saturation 98% 04/09/2024 1:17 PM TUNNEL FORM PLACING SUPERVISOR Inhaled Oxygen Concentration - - Weight 66.1 kg (145 lb 11.2 oz) 04/09/2024 1:17 PM TUNNEL FORM PLACING SUPERVISOR Height 157.5 cm (5' 2 ) 04/09/2024 1:17 PM TUNNEL FORM PLACING SUPERVISOR Body Mass Index 26.65 04/09/2024 1:17 PM TUNNEL FORM PLACING SUPERVISOR Plan of Treatment Not on file Procedures Procedure Name Priority Date/Time Associated Diagnosis Comments SCAN - LABS 05/07/2024 HM DEXA SCAN Routine 05/01/2024 11:43 AM CDT DIFFERENTIAL AUTO Routine 04/17/2024 11: 59 AM TUNNEL FORM PLACING SUPERVISOR Dyspepsia CBC WITH AUTO DIFFERENTIAL Routine 04/17/2024 11:59 AM TUNNEL FORM PLACING SUPERVISOR Dyspepsia EGFR Routine 04/17/2024 11:58 AM TUNNEL FORM PLACING SUPERVISOR Dyspepsia COMPREHENSIVE METABOLIC PANEL Routine 04/17/2024 11:58 AM TUNNEL FORM PLACING SUPERVISOR Dyspepsia AMYLASE Routine 04/17/2024 11:58 AM TUNNEL FORM PLACING SUPERVISOR Dyspepsia LIPASE Routine 04/17/2024 11:58 AM TUNNEL FORM PLACING SUPERVISOR Dyspepsia US ABDOMEN COMPLETE Schedule Routine, Read Routine (OP Routine) 04/17/2024 10:46 AM TUNNEL FORM PLACING SUPERVISOR Dyspepsia XR HIP LEFT 2 OR 3 VIEWS Schedule Routine, Read Routine (OP Routine) 04/17/2024 10:33 AM TUNNEL FORM PLACING SUPERVISOR Annual physical exam SCREENING MAMMOGRAM BILATERAL W STORMY Schedule Routine, Read Routine (OP Routine) 12/14/2023 2:20 PM CDT Screening mammogram, encounter for COLONOSCOPY Routine 08/12/2022 from Last 3 Months or Most Recently Relevant to Health Maintenance Results * SCAN - LABS (05/07/2024) us Provider Scanning Edited Result - Final * DEXA SCAN (05/01/2024 11:43 AM CDT) us Historical Provider HEALTH MAINTENANCE Final Result * Differential, auto (04/17/2024 11:59 AM TUNNEL FORM PLACING SUPERVISOR) Neutrophil abs 3.0 1.5 - 6.5 K/cumm Imm gran abs 0.0 0.0 - 0.1 K/cumm [facility] Lymphocyte abs 1.6 0.8 - 3.3 K/cumm [facility] Monocyte abs 0.5 0.2 - 0.8 K/cumm [facility] Eosinophil abs 0.1 0.0 - 0.5 K/cumm [facility] Basophil abs 0.1 0.0 - 0.1 K/cumm [facility] Neutrophil pct 56.9 % [facility] Comment: Interpretive Data Percent cell count reference ranges are not reported, since discordance with absolute values may lead to misinterpretation of CBC data. Current Interpretive Data was last revised on 2017. Imm gran pct 0.2 % [facility] Comment: Interpretive Data Percent cell count reference ranges are not reported, since discordance with absolute values may lead to misinterpretation of CBC data. Current Interpretive Data was last revised on 2017. Lymphocyte pct 30.1 % [facility] Comment: Interpretive Data Percent cell count reference [...] revised on 2017. Eosinophil pct 2.3 % [facility] Comment: Interpretive Data Percent cell count reference [...] on 2017. Blood 04/17/2024 11:5 9 AM TUNNEL FORM PLACING SUPERVISOR 04/17/2024 11:59 AM TUNNEL FORM PLACING SUPERVISOR Alexis Flood MD LAB BLOOD ORDERABLES Destiny l Result Performing Organization Address City/[facility]/ZIP Co de Phone Number BECCA RICARDO [address] [address] [place] [place] [address] * (ABNORMAL) CBC with auto differential (04/17/2024 11:59 AM TUNNEL FORM PLACING SUPERVISOR) Pathologist [facility] [place] WBC 5.2 3.8 - 9.9 K/cumm Hgb 12.2 11.9 - 15.5 g/dL [facility] Hct 39.5 35.6 - 45.5 % [facility] CH Plt 257 150 - 400 K/cumm [facility] MPV 9.5 9.1 - 12.3 fL [facility] RBC 4.53 3.90 - 5.20 M/cumm [facility] CH MCV 87.2 81.3 - 96.4 fL [facility] CH MCH 26.9(L) 27.1 - 33.3 pg [facility] MCHC 30.9(L) 32.3 - 35.7 g/dL [facility] CH RDW CV 13.7 11.1 - 14.9 % [facility] CH RDW SD 43.7 35.7 - 48.1 fL [facility] NRBC abs 0.00 0.00 - 0.01 K/cumm [facility] Blood 04/17/2024 11:5 9 AM TUNNEL FORM PLACING SUPERVISOR 04/17/2024 11:59 AM TUNNEL FORM PLACING SUPERVISOR Alexis Flood MD LAB BLOOD ORDERABLES Destiny l Result Performing Organization Address City/[facility]/ZIP Co de Phone Number BECCA RICARDO [address] [address] of [employer] [place], [place] [id number] * eGFR (04/17/2024 11:58 AM TUNNEL FORM PLACING SUPERVISOR) Pathologist [facility] [place] eGFR >90 >=60 mL/min/1. 73 m2 Comment: [...] reviewed 2020. Blood 04/17/2024 11:5 8 AM TUNNEL FORM PLACING SUPERVISOR 04/17/2024 11:58 AM TUNNEL FORM PLACING SUPERVISOR Alexis Flood MD LAB BLOOD ORDERABLES Destiny l Result Performing Organization Address City/[facility]/ZIP Co de Phone Number BECCA [address] [place] [address] * Lipase (04/17/2024 11:58 AM TUNNEL FORM PLACING SUPERVISOR) Lipase 38 10 - 99 Units/L Blood 04/17/2024 11:5 8 AM TUNNEL FORM PLACING SUPERVISOR 04/17/2024 11:58 AM TUNNEL FORM PLACING SUPERVISOR Alexis Flood MD LAB BLOOD ORDERABLES Destiny l Result Performing Organization Address City/[facility]/ZIP Co de Phone Number BECCA [address] [facility] [place] [address] * Amylase (04/17/2024 11:58 AM TUNNEL FORM PLACING SUPERVISOR) Amylase 59 30 - 99 Units/L Blood 04/17/2024 11:5 8 AM TUNNEL FORM PLACING SUPERVISOR 04/17/2024 11:58 AM TUNNEL FORM PLACING SUPERVISOR Alexis Flood MD LAB BLOOD ORDERABLES Destiny l Result BECCA [address] [place] [place] [address] * Comprehensive metabolic panel (04/17/2024 11:58 AM TUNNEL FORM PLACING SUPERVISOR) Sodium 142 135 - 145 mmol/L Potassium, [...] [facility] Blood 04/17/2024 11:5 8 AM TUNNEL FORM PLACING SUPERVISOR 04/17/2024 11:58 AM TUNNEL FORM PLACING SUPERVISOR us Alexis Flood MD LAB BLOOD ORDERABLES Destiny hampton Result BECCA RICARDO [address] Department [place] [address] * US Abdomen Complete (04/17/2024 10:46 AM TUNNEL FORM PLACING SUPERVISOR) Anatomical Region Laterality Modality Abdomen N/A Ultrasound 04/17/2024 11:5 9 AM TUNNEL FORM PLACING SUPERVISOR Impressions 04/17/2024 11:59 AM TUNNEL FORM PLACING SUPERVISOR Unremarkable exam without cholelithiasis or acute cholecystitis. No hepatic lesions or biliary distention. Electronically signed by: Shaunna Valadez M.D. Narrative 04/17/2024 11:59 AM TUNNEL FORM PLACING SUPERVISOR EXAMINATION: ABDOMINAL ULTRASOUND, COMPLETE Date: 04/17/2024 10:30 [...] by: Shaunna Valadez M.D. Alexis Flood MD [facility] US PROCEDURES Final R esult * XR Hip Left 2+ Vw (04/17/2024 10:33 AM TUNNEL FORM PLACING SUPERVISOR) Anatomical Region Laterality Modality Lower Extremities, Hip, Pelvis Left C omputed Radiography 04/17/2024 11:0 2 AM TUNNEL FORM PLACING SUPERVISOR Impressions 04/17/2024 11:02 AM TUNNEL FORM PLACING SUPERVISOR No fracture seen. Electronically signed by: Javier Cotton M.D. Narrative 04/17/2024 11:02 AM TUNNEL FORM PLACING SUPERVISOR EXAMINATION: XR HIP LEFT 2 OR 3 [...] compared to prior imaging studies performed at [facility] on 11/09/2020, 12/08/2021 and 12/12/2022. [...] compared to prior imaging studies performed at [facility] on 11/09/2020, 12/08/2021 and 12/12/2022. [...] Colonoscopy (08/12/2022) Anatomical Region Laterality Modality Other [facility] Provider ENDOSCOPY PROCEDURES Destiny l Result from Last 3 Months or Most Recently Relevant to Health Maintenance Insurance [facility] [employer] [place] Care Teams Relocation Associate Relationship Specialty Start Date End Date Alexis Flood MD [address] [place] [address] PCP - General 06/02/08
--- OUTSIDE RECORDS SUMMARY | 2024-06-28 07:41 | XMS_ITS | Clinical Summary ---
Author Organization [facility] [place] [facility] Address [address] [place] [address] Care Team Providers Care Vocational School Teacher Name Role Phone Alexis Flood MD Primary Care Provider [phone] [phone] Allergies No known active allergies Medications ergocalciferol (VITAMIN D) 50,000 unit capsule TAKE 1 CAPSULE BY MOUTH WEEKLY 03/14/2024 Active omeprazole (PriLOSEC) 40 mg capsule Take 1 capsule (40 mg total) by mouth daily Active Active Problems Problem Noted Date Diagnosed Date Dyspepsia 04/21/2024 Assessment & Plan (04/21/2024 10:31 AM RACKER OCTAVE BOARD): Reviewed differnetial with patient. Reivewed anatomy fo area of ttp and will monitor respnose. Will check with abdominal ultrasound and then continue on labwork to look for pancreatic abnormalties. Reivewed red falg s/s. Discussed differential to include PUD, biliary, GERD, gastritis, etc. Adjustment disorder with anxious mood 04/21/2024 Assessment & Plan (04/21/2024 10:31 AM RACKER OCTAVE BOARD): Good insight into increased stressors. Reivewed work and sleep hygiene. Montior response. BMI 26.0-26.9,adult 04/21/2024 Osteoarthritis of carpometacarpal joint of thumb 04/22/2015 Overview (05/27/2016): Carpometacarpal thumb joint osteoarthritis Urinary tract infection 10/21/2014 Overview (05/27/2016): UTI (urinary tract infection) Encounters Date Type Department Care Team Description 05/07/2024 Orders Only [facility] [place] Management [address] [place] [address] Scanning, Provider 05/02/2024 Orders Only [facility] [address] [address] ProviderJose MD 04/22/2024 Orders Only [facility] [address] [phone] Alexis Flood MD Dyspepsia (Primary Dx) 04/17/2024 11:30 AM RACKER OCTAVE BOARD Lab [address] [address] Dyspepsia 04/17/2024 10:26 AM RACKER OCTAVE BOARD - 04/17/2024 11:59 PM RACKER OCTAVE BOARD Hospital Encounter [facility] [address] [place] [address] Annual physical exam Discharge Disposition: Discharge to home or self care 04/17/2024 9:52 AM RACKER OCTAVE BOARD - 04/17/2024 11:59 PM RACKER OCTAVE BOARD Hospital Encounter [facility] ` [address] [place] [address] Dyspepsia Discharge Disposition: Discharge to home or self care 04/17/2024 Results [facility] [address] [phone] Alexis Flood MD 04/09/2024 1:15 PM RACKER OCTAVE BOARD Office Visit [facility] Primary Care at [address] [address] Alexis Flood MD Dyspepsia (Primary Dx); Adjustment disorder with anxious mood; BMI 26.0-26.9,adult 04/09/2024 Telephone [facility] Primary Care at [address] [address] Alexis Flood MD from Last [...] fibroid cyst on cervix 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 Arthritis; Comme nts: CLS 04/22/2015 - [...] sandra; /; Alzheimer's disease Maternal Grandmother Marylu Grafu mstein Alzheimer's disease Mother Marilin Avila Arthritis Mother Marilin Avila Memory loss Mother Marilin Avila Other Mother Marilin Avila Alive and well; Alzheimer's disease Mother's Sister 1 Jasmin Dykest Cancer Mother's Sister 1 Jasmin Dykest Cancer Mother's Sister 2 Milli Dominique Cancer Mother's Sister 3 Nafisa Castanony Cancer Sister 1 Sandy Vance Miscarriages / Stillbirths Sister 1 Sandy Vance Diabetes Sister 2 Keshiacarson Nicholso Relation Name Status Comments Brother 1 Alive Brother 2 Kristopher Avila Brother 3 Father Gaurav Avila Maternal Grandmother Marylu Virk Mother Marilin Avila Alive Mother's Sister 1 Jasmin Black Mother's Sister 2 Milli Dominique Mother's Sister 3 Nafisa Sheary Sister 1 Sandy Vance Sister 2 Keshia Nicholso Social History Tobacco Use Types Packs/Day Years [...] on file Legal Sex Female 11:55 PM RACKER OCTAVE BOARD Gender Identity Not on file Sexual Orientation Not on file Obstetrics History Last Filed Vital Signs Vital Sign Reading Time Taken Comments Blood Pressure 132/70 04/09/2024 1:17 PM RACKER OCTAVE BOARD Pulse 70 04/09/2024 1:17 PM RACKER OCTAVE BOARD Temperature 36.8 C (98.2 F) 04/09/2024 1:17 PM RACKER OCTAVE BOARD Respiratory Rate 16 09/11/2023 7:58 AM CDT Oxygen Saturation 98% 04/09/2024 1:17 PM RACKER OCTAVE BOARD Inhaled Oxygen Concentration - - Weight 66.1 kg (145 lb 11.2 oz) 04/09/2024 1:17 PM RACKER OCTAVE BOARD Height 157.5 cm (5' 2 ) 04/09/2024 1:17 PM RACKER OCTAVE BOARD Body Mass Index 26.65 04/09/2024 1:17 PM RACKER OCTAVE BOARD Plan of Treatment Health Maintenance Due Date Last Done Comments Hepatitis C Screening 1960 Hepatitis B Screening 06/21/1979 DTaP/Tdap/Td Vaccine (3 - Td or Tdap) 01/12/2019 01/12/2009, 01/12/2009 Covid-19 Vaccine ( season) 2023 01/23/2023, 11/17/2021, 11/17/2021, Additional history exists Regular Well Visit/Exam 18-64 09/10/2024 09/11/2023, 08/26/2022, 08/25/2021, Additional history exists Influenza Vaccine (Season Ended) 2024 12/01/2020, 12/02/2019, 12/20/2018, Additional history exists Breast Cancer Screening-Mammogram 12/13/2024 [...] DIFFERENTIAL AUTO Routine 04/17/2024 11: 59 AM RACKER OCTAVE BOARD Dyspepsia CBC WITH AUTO DIFFERENTIAL Routine 04/17/2024 11:59 AM RACKER OCTAVE BOARD Dyspepsia EGFR Routine 04/17/2024 11:58 AM RACKER OCTAVE BOARD Dyspepsia COMPREHENSIVE METABOLIC PANEL Routine 04/17/2024 11:58 AM RACKER OCTAVE BOARD Dyspepsia AMYLASE Routine 04/17/2024 11:58 AM RACKER OCTAVE BOARD Dyspepsia LIPASE Routine 04/17/2024 11:58 AM RACKER OCTAVE BOARD Dyspepsia US ABDOMEN COMPLETE Schedule Routine, Read Routine (OP Routine) 04/17/2024 10:46 AM RACKER OCTAVE BOARD Dyspepsia XR HIP LEFT 2 OR 3 VIEWS Schedule Routine, Read Routine (OP Routine) 04/17/2024 10:33 AM RACKER OCTAVE BOARD Annual physical exam SCREENING MAMMOGRAM BILATERAL W ROBBI Schedule Routine, Read Routine (OP Routine) 12/14/2023 2:20 PM CDT Screening mammogram, encounter for COLONOSCOPY Routine 08/12/2022 from Last 3 Months or Most Recently Relevant to Health Maintenance Results * SCAN - LABS (05/07/2024) us Provider Scanning Edited Result - Final * DEXA SCAN (05/01/2024 11:43 AM CDT) Historical Provider MD HEALTH MAINTENANCE Final Result * Differential, auto (04/17/2024 11:59 AM RACKER OCTAVE BOARD) Neutrophil abs 3.0 1.5 - 6.5 K/cumm Imm gran abs 0.0 0.0 - 0.1 K/cumm [facility] Lymphocyte abs 1.6 0.8 - 3.3 K/cumm [facility] Monocyte abs 0.5 0.2 - 0.8 K/cumm [facility] Eosinophil abs 0.1 0.0 - 0.5 K/cumm [facility] Basophil abs 0.1 0.0 - 0.1 K/cumm [facility] CH Neutrophil pct 56.9 % [facility] Comment: Interpretive Data Percent cell count reference ranges are not reported, since discordance with absolute values may lead to misinterpretation of CBC data. Current Interpretive Data was last revised on 2017. Imm gran pct 0.2 % C[facility] Comment: Interpretive Data Percent cell [...] on 2017. Monocyte pct 9.1 % [facility] Comment: Interpretive Data Percent cell count reference ranges are not reported, since discordance with absolute values may lead to misinterpretation of CBC data. Current Interpretive Data was last revised on 2017. Eosinophil pct 2.3 % [facility] Comment: Interpretive Data Percent cell count reference ranges are not reported, since discordance with absolute values may lead to misinterpretation of CBC data. Current Interpretive Data was last revised on 2017. Basophil pct 1.4 % [facility] Comment: Interpretive Data Percent cell count reference ranges are not reported, since discordance with absolute values may lead to misinterpretation of CBC data. Current Interpretive Data was last revised on 2017. Blood 04/17/2024 11:5 9 AM RACKER OCTAVE BOARD 04/17/2024 11:59 AM RACKER OCTAVE BOARD Alexis Flood MD LAB BLOOD ORDERABLES Destiny hampton Result [facility] [address] Department [place] [address] * (ABNORMAL) CBC with auto differential (04/17/2024 11:59 AM RACKER OCTAVE BOARD) WBC 5.2 3.8 - 9.9 K/cumm Hgb 12.2 11.9 - 15.5 g/dL [facility] Hct 39.5 35.6 - 45.5 % [facility] Plt 257 150 - 400 K/cumm [facility] MPV 9.5 9.1 - 12.3 fL [facility] RBC 4.53 3.90 - 5.20 M/cumm [facility] MCV 87.2 81.3 - 96.4 fL [facility] MCH 26.9(L) 27.1 - 33.3 pg [facility] MCHC 30.9(L) 32.3 - 35.7 g/dL [facility] RDW CV 13.7 11.1 - 14.9 % [facility] RDW SD 43.7 35.7 - 48.1 fL [facility] NRBC abs 0.00 0.00 - 0.01 K/cumm [facility] Blood 04/17/2024 11:5 9 AM RACKER OCTAVE BOARD 04/17/2024 11:59 AM RACKER OCTAVE BOARD Alexis Flood MD LAB BLOOD ORDERABLES Destiny l Result Performing Organization Address City/[facility] Co de Phone Number BECCA RICARDO [address] [place] [address] * eGFR (04/17/2024 11:58 AM RACKER OCTAVE BOARD) eGFR >90 >=60 mL/min/1. 73 m2 Comment: [...] reviewed 2020. Blood 04/17/2024 11:5 8 AM RACKER OCTAVE BOARD 04/17/2024 11:58 AM RACKER OCTAVE BOARD Alexis Flood MD LAB BLOOD ORDERABLES Destiny l Result Performing Organization Address City/[facility]/ZIP Co de Phone Number BECCA RICARDO [address] [place] [address] * Lipase (04/17/2024 11:58 AM RACKER OCTAVE BOARD) Lipase 38 10 - 99 Units/L Blood 04/17/2024 11:5 8 AM RACKER OCTAVE BOARD 04/17/2024 11:58 AM RACKER OCTAVE BOARD Alexis Flood MD LAB BLOOD ORDERABLES Destiny l Result Performing Organization Address City/[facility]/ZIP Co de Phone Number BECCA RICARDO [address] [place] [address] * Amylase (04/17/2024 11:58 AM RACKER OCTAVE BOARD) Amylase 59 30 - 99 Units/L Blood 04/17/2024 11:5 8 AM RACKER OCTAVE BOARD 04/17/2024 11:58 AM RACKER OCTAVE BOARD Alexis Flood MD LAB BLOOD ORDERABLES Destiny l Result Performing Organization Address [facility] Co de Phone Number BECCA RICARDO [address] [place] [address] * Comprehensive metabolic panel (04/17/2024 11:58 AM RACKER OCTAVE BOARD) Sodium 142 135 - 145 mmol/L Potassium, pl 3.9 3.3 - 4.9 mmol/L [facility] Chloride 108 97 - 110 mmol/L [facility] CO2 25 22 - 32 mmol/L [facility] Anion gap 9 2 - 15 mmol/L [facility] BUN 16 6 - 25 mg/dL [facility] Creatinine 0.68 0.60 - 1.10 mg/dL [facility] Glucose 89 70 - 199 mg/dL [facility] Comment: Interpretive Data Fasting glucose [...] Calcium 9.2 8.5 - 10.3 mg/dL [facility] Bilirubin, total 0.3 0.1 - 1.2 mg/dL [facility] Protein, pl 7.0 6.5 - 8.5 g/dL [facility] Albumin 4.1 3.5 - 5.0 g/dL [facility] Alk phos 70 40 - 130 Units/L [facility] ALT 31 7 - 45 Units/L [facility] AST 32 10 - 45 Units/L [facility] Blood 04/17/2024 11:5 8 AM RACKER OCTAVE BOARD 04/17/2024 11:58 AM RACKER OCTAVE BOARD us Alexis Flood MD LAB BLOOD ORDERABLES Destiny l Result BECCA RICARDO [address] Department [place] [address] * US Abdomen Complete (04/17/2024 10:46 AM RACKER OCTAVE BOARD) Anatomical Region Laterality Modality Abdomen N/A Ultrasound 04/17/2024 11:5 9 AM RACKER OCTAVE BOARD Impressions 04/17/2024 11:59 AM RACKER OCTAVE BOARD Unremarkable exam without cholelithiasis or acute cholecystitis. No hepatic lesions or biliary distention. Electronically signed by: Shaunna Valadez M.D. Narrative 04/17/2024 11:59 AM RACKER OCTAVE BOARD EXAMINATION: ABDOMINAL ULTRASOUND, COMPLETE Date: 04/17/2024 10:30 [...] Hip Left 2+ Vw (04/17/2024 10:33 AM RACKER OCTAVE BOARD) Anatomical Region Laterality Modality Lower Extremities, Hip, Pelvis Left C omputed Radiography 04/17/2024 11:0 2 AM RACKER OCTAVE BOARD Impressions 04/17/2024 11:02 AM RACKER OCTAVE BOARD No fracture seen. Electronically signed by: Javier Cotton M.D. Narrative 04/17/2024 11:02 AM RACKER OCTAVE BOARD EXAMINATION: XR HIP LEFT 2 OR 3 [...] compared to prior imaging studies performed at [facility] on 11/09/2020, 12/08/2021 and 12/12/2022. The breasts [...] compared to prior imaging studies performed at [facility] on 11/09/2020, 12/08/2021 and 12/12/2022. The breasts [...] Most Recently Relevant to Health Maintenance Insurance [employer] Member Subscriber Plan / Payer (Ef fective 2017-Present) Name:Grace Bañuelos Relation to Subscriber:Self Name:Grace Bañuelos Payer ID:[id number] Type:COMMERCIAL Address: [place] [phone] Setred Member Subscriber Plan / Payer ( fective 2018-Present) Name:Grace Bañuelos Relation to Subscriber:Self Name:Grace Bañuelos Payer ID:[id number] Type:COMMERCIAL Address: [place] [phone] [place] Care Teams Vocational School Teacher Relationship Specialty Start Date End Date Alexis Flood MD [address] [place] [address] PCP - General 06/02/08
[2024-06-28 07:52] LABS: Estimated Glomerular Filt Rate > 60
== END 2024-06-28 07:35 | disposition home or self-care (01) ==
PROVIDERS: PCP Family Medicine; Visit Provider Nurse Practitioner
DX: E27.9 Disorder of adrenal gland, unspecified (principal)
CPT/HCPCS: 74177; Q9967

== ENCOUNTER 2024-09-06 00:46 | Day surgery (SDC) | payer OTHER, SELFPAY ==
[2024-08-26 08:30] VITALS: BMI 25.8
--- OUTSIDE RECORDS SUMMARY | 2024-09-06 00:48 | XMS_ITS | Referral Summary ---
Author Organization [facility] [place] [address] [facility] l[facility] Address [address] [place] [address] Care Team Providers Care Sausage Machine Operator Name Role Phone Alexis Flood MD Primary Care Provider [phone] [phone] Encounters Date Type Department Care Team Description 06/28/2024 Orders Only [facility] [place] Health Information Management [address] [place] [id number] Scanning, Provider from Last 3 Months Allergies No known active allergies Medications ergocalciferol (VITAMIN D) 50,000 unit capsule TAKE 1 CAPSULE BY MOUTH WEEKLY 03/14/2024 Active omeprazole (PriLOSEC) 40 mg capsule Take 1 capsule (40 mg total) by mouth daily Active Active Problems Problem Noted Date Diagnosed Date Dyspepsia 04/21/2024 Assessment & Plan (04/21/2024 10:31 AM PHYSICAL MEDICINE PHYSICIAN): Reviewed differnetial with patient. Reivewed anatomy fo area of ttp and will monitor respnose. Will check with abdominal ultrasound and then continue on labwork to look for pancreatic abnormalties. Reivewed red falg s/s. Discussed differential to include PUD, biliary, GERD, gastritis, etc. Adjustment disorder with anxious mood 04/21/2024 Assessment & Plan (04/21/2024 10:31 AM PHYSICAL MEDICINE PHYSICIAN): Good insight into increased stressors. Reivewed work [...] on file Legal Sex Female 11:55 PM PHYSICAL MEDICINE PHYSICIAN Gender Identity Not on file Sexual Orientation Not on file Last Filed Vital Signs Vital Sign Reading Time Taken Comments Blood Pressure 132/70 04/09/2024 1:17 PM PHYSICAL MEDICINE PHYSICIAN Pulse 70 04/09/2024 1:17 PM PHYSICAL MEDICINE PHYSICIAN Temperature 36.8 C (98.2 F) 04/09/2024 1:17 PM PHYSICAL MEDICINE PHYSICIAN Respiratory Rate 16 09/11/2023 7:58 AM CDT Oxygen Saturation 98% 04/09/2024 1:17 PM PHYSICAL MEDICINE PHYSICIAN Inhaled Oxygen Concentration - - Weight 66.1 kg (145 lb 11.2 oz) 04/09/2024 1:17 PM PHYSICAL MEDICINE PHYSICIAN Height 157.5 cm (5' 2) 04/09/2024 1:17 PM PHYSICAL MEDICINE PHYSICIAN Body Mass Index 26.65 04/09/2024 1:17 PM PHYSICAL MEDICINE PHYSICIAN Plan of Treatment Not on file Procedures Procedure Name Priority Date/Time Associated Diagnosis Comments SCAN - LABS 06/28/2024 SCAN - RADIOLOGY/IMAGING 06/28/2024 SCREENING MAMMOGRAM BILATERAL W ROBBI Schedule Routine, Read Routine (OP Routine) 12/14/2023 2:20 PM CDT Screening mammogram, encounter for COLONOSCOPY Routine 08/12/2022 from Last 3 Months or Most Recently Relevant to Health Maintenance Results * SCAN - RADIOLOGY/IMAGING (06/28/2024) Anatomical Region Laterality Modality Other us Provider Scanning Final Result * SCAN - LABS (06/28/2024) us Provider Scanning Final Result * Screening Mammogram Bilateral W Robbi (12/14/2023 2:20 PM CDT) Anatomical Region Laterality Modality Breast Bilateral Mammography Narrative 12/15/2023 12:45 PM CDT Mammogram Technique: Bilateral Digital Breast Tomosynthesis, Bilateral C-view 2D Screening mammogram. Views obtained: bilateral craniocaudal and bilateral mediolateral oblique. Computer Aided Detection was performed. Mammogram Findings: The present examination has been compared to prior imaging studies performed at [facility] on 11/09/2020, 12/08/2021 and 12/12/2022. The [...] compared to prior imaging studies performed at [facility] on 11/09/2020, 12/08/2021 and 12/12/2022. The [...] Most Recently Relevant to Health Maintenance Insurance [facility] [employer] [place] Care Teams Sausage Machine Operator Relationship Specialty Start Date End Date [place] [address] PCP - General 06/02/08
--- OUTSIDE RECORDS SUMMARY | 2024-09-06 00:48 | XMS_ITS | Clinical Summary ---
Author Organization [facility] Address [address] [place] [address] Care Team Providers Care Senior Gamemaster Name Role Phone Alexis Flood MD Primary Care Provider [phone] Source Comments [facility],non-owned Affiliates and Associated Physician Practices is amultiple site organization consisting of ambulatory clinics and hospital sitesin [place], [place], [place] and [place]. This disclosure is being madepursuant to the Care Everywhere program and may not contain all information available regarding this patient. Last updated 17.[facility] Allergies No known active allergies Medications * [...] Comments Blood Pressure 124/84 03/30/2023 11:47 AM PROTECTION OFFICER Pulse 71 04/23/2020 12:07 PM PROTECTION OFFICER Temperature 36.7 C (98.1 F) 03/30/2023 11:47 AM PROTECTION OFFICER Respiratory Rate - - Oxygen Saturation 98% 04/23/2020 12:07 PM PROTECTION OFFICER Inhaled Oxygen Concentration - - Weight 65.3 kg (144 lb) 03/30/2023 11:47 AM PROTECTION OFFICER Height 157.5 cm (5' 2.01) 03/30/2023 11:[address] Body Mass Index 26.33 03/30/2023 11:47 AM PROTECTION OFFICER Plan of Treatment Health Maintenance Due Date Last Done Comments NATE (AGES 45-75) - COLON CA SCREENING 1960 COLON MONITORING 1961 COLONOSCOPY - COLON CA SCREENING 1961 CT COLONOGRAPHY - COLON CA SCREENING 1960 Colorectal Cancer Screening 1961 FIT - COLON CA SCREENING 1961 FLEX SIG - COLON CA SCREENING 1961 LIPID TESTING 1961 HIV SCREENING 1976 HEPATITIS C SCREENING 06/16/1979 PAP SMEAR 1982 PNEUMOCOCCAL VACCINE 50+ (1 of 1 - PCV) 06/21/2011 DTAP/TDAP/TD VACCINES (2 - Td or Tdap) 01/12/2019 01/12/2009 SCREENING FOR DIABETES 03/30/2023 COVID-19 VACCINE ( season) 2023 01/23/2023, 11/17/2021, 11/17/2021, Additional history exists DEPRESSION SCREENING 02/21/2024 INFLUENZA VACCINE (#1) 2024 , 12/02/2019, 12/20/2018, Additional history exists MAMMOGRAM 12/12/2024 [...] this topic Insurance COMMERCIAL GENERIC Care Teams Senior Gamemaster Relationship Specialty Start Date End [place] [id number] PCP - General 07/29/19
--- OUTSIDE RECORDS SUMMARY | 2024-09-06 00:48 | XMS_ITS | Clinical Summary ---
Author Organization [facility] [place] [address] [facility] Address [address] [place] [address] Care Team Providers Care Railway Head Tender Name Role Phone Alexis Flood MD Primary Care Provider [phone] Allergies No known active allergies Medications ergocalciferol (VITAMIN D) 50,000 unit capsule TAKE 1 CAPSULE BY MOUTH WEEKLY 03/14/2024 Active omeprazole (PriLOSEC) 40 mg capsule Take 1 capsule (40 mg total) by mouth daily Active Active Problems Problem Noted Date Diagnosed Date Dyspepsia 04/21/2024 Assessment & Plan (04/21/2024 10:31 AM WIRE COATING OPERATOR METAL): Reviewed differnetial with patient. Reivewed anatomy fo area of ttp and will monitor respnose. Will check with abdominal ultrasound and then continue on labwork to look for pancreatic abnormalties. Reivewed red falg s/s. Discussed differential to include PUD, biliary, GERD, gastritis, etc. Adjustment disorder with anxious mood 04/21/2024 Assessment & Plan (04/21/2024 10:31 AM WIRE COATING OPERATOR METAL): Good insight into increased stressors. Reivewed work and sleep hygiene. Montior response. 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 Arthritis Arthritis; Comme nts: CLS 04/22/2015 - [...] and well; Alzheimer's disease Mother's Sister 1 [place] Black Cancer Mother's Sister 1 [place] Black Cancer Mother's Sister 2 Milli Dominique Cancer Mother's Sister 3 Nafisa Castanony Cancer Sister 1 Sandy Vance Miscarriages / Stillbirths Sister 1 Sandy Vance Diabetes Sister 2 Keshia Nicholsmalcolm Relation Name Status Comments Brother 1 Alive Brother 2 Kristopher Avila Brother 3 Father Gaurav Avila Maternal Grandmother Marylu Virk Mother Marilin Avila Alive Mother's Sister 1 Jasmin Black Mother's Sister 2 Milli Domínguezton Mother's Sister 3 Nafisa Sheary Sister 1 Sandy Vance Sister 2 Keshia Cooperitto Social History Tobacco Use Types Packs/Day Years [...] on file Legal Sex Female 11:55 PM WIRE COATING OPERATOR METAL Gender Identity Not on file Sexual Orientation Not on file Obstetrics History Last Filed Vital Signs Vital Sign Reading Time Taken Comments Blood Pressure 132/70 04/09/2024 1:17 PM WIRE COATING OPERATOR METAL Pulse 70 04/09/2024 1:17 PM WIRE COATING OPERATOR METAL Temperature 36.8 C (98.2 F) 04/09/2024 1:17 PM WIRE COATING OPERATOR METAL Respiratory Rate 16 09/11/2023 7:58 AM CDT Oxygen Saturation 98% 04/09/2024 1:17 PM WIRE COATING OPERATOR METAL Inhaled Oxygen Concentration - - Weight 66.1 kg (145 lb 11.2 oz) 04/09/2024 1:17 PM WIRE COATING OPERATOR METAL Height 157.5 cm (5' 2) 04/09/2024 1:17 PM WIRE COATING OPERATOR METAL Body Mass Index 26.65 04/09/2024 1:17 PM WIRE COATING OPERATOR METAL Plan of Treatment Health Maintenance Due Date [...] compared to prior imaging studies performed at [facility] on 11/09/2020, 12/08/2021 and 12/12/2022. The [...] compared to prior imaging studies performed at [facility] on 11/09/2020, 12/08/2021 and 12/12/2022. The [...] Region Laterality Modality Other us Historical Provider MD ENDOSCOPY PROCEDURES Destiny l Result from Last 3 Months or Most Recently Relevant to Health Maintenance Insurance [facility] Member Subscriber Plan / Payer (Ef fective 2017-Present) Name:Grace Bañuelos Relation to Subscriber:Self Name:Grace Bañuelos Payer ID:[id number] Type:COMMERCIAL Address: [address] [facility] Member Subscriber Plan / Payer (Ef fective 2018-Present) Name:Grace Bañuelos Relation to Subscriber:Self Name:Grace Bañuelos Payer ID:[id number] Type:COMMERCIAL Address: [place] [id number] [facility] Member Subscriber Plan / Payer (Ef fective 2017-Present) Name:Grace Bañuelos Relation to Subscriber:Self Name:Grace Bañuelos Payer ID:[id number] Type:COMMERCIAL Address: [address] [facility] [place] [id number] Care Teams Railway Head Tender Relationship Specialty Start Date End Date Harms, Alexis Camacho, MD [address] [place] [address] PCP - General 06/02/08
--- OUTSIDE RECORDS SUMMARY | 2024-09-06 00:48 | XMS_ITS | Continuity of Care Document ---
Author Organization [facility] Address [address] [place] [address] Phone Care Team Providers Care Mural Painter Name Role Phone Justen Salmeron DO Unavailable Unavailable Allergies, Adverse Reactions, Alerts Substance Reaction Status Criticality No Known Allergies Active No Inform ation Procedures Procedure Date OFFICE/OUTPATIENT VISIT EST RADEX HAND MINIMUM 3 VIEWS RADEX HAND MINIMUM 3 VIEWS Drugs unclassified injection Betamethasone acet&sod phosp DRAIN/INJECT JOINT/BURSA RADEX FNGR MINIMUM 2 VIEWS RADEX HAND MINIMUM 3 VIEWS Triamcinolone acet inj NOS DRAIN/INJECT JOINT/BURSA OFFICE/OUTPATIENT VISIT NEW Advance Directives Directive Yes / No Effective Date File Name No Information Encounters Encounter Description Practice Location Reason(s) For Visit Diagnoses Date Provider Providers Copied on Encounter OFFICE/OUTPA TIENT VISIT EST [facility], [address], [place], [address], [place] tel:[phone] [facility] Primary osteoarthritis of first carpometacarpal joint of left handPrimary osteoarthritis of first carpometacarpal joint of right handBody mass index [BMI] 25.0-25.9, adult Nov- 3 Jaron Campuzano . [address], [place], [place], [id number] , [place]. tel:[phone] Referring Provider: [address], [place], [address]. tel:[phone] OFFICE/OUTPA TIENT VISIT NEW [facility], [address], [place], [address], [place] tel:[phone] [facility] Pain in left finger(s)Pain in right handOsteoarthriti s of right thumbOsteoarthrit is of left thumbMetacarpal boss 1 Natalie Quiñonez. [address], [place], [place], [id number] . tel: [phone] Referring Provider: [address], [place], [address]. tel:[phone] Family History Family Member Type Diagnosis Age At Onset Mother Problem Alive and well Sister Problem Cancer, breast Sister Problem Diabetes mellitus Father Problem (finding) Father Problem Cancer, prostate Payers Payer name Insurance type Covered democrat ID Authordany serratocharlotte(s) MedHaydenn OT [id number] Social History Type Description Quantity Date Captured Comments Alcohol Use Details Caffeine Use Details Unknown Tobacco Use Status Ex-cigarette smoker 023 Smoking Status Former smoker Smoking Tobacco Use Details Cigarette: Age Stopped: 20 Cigarette: No Details Available Sex Female Vital Signs Date / Time: Height Weight BMI Pulse Rate Blood Pressure Temperature Respiratory Rate Body Surface Area Head Circumference Head Circ. Percentile Wt./Madi. Percentile BMI percentile Pulse Ox Inhaled Ox 3:18 PM 62.00 in 62.596 kg (138.00 lbs) 25.2 4 kg/m eter (2) Chief Complaint And Reason For Visit No Information Reason For Referral Reason For Referral No Information Plan Of Treatment Date Type Action Status Goal Lifestyle education regardin g diet completed Referral Ordered: RADEX HAND MINIMUM 3 VIEWS RT ordered Referral Ordered: MUSC TEST DONE W/N TEST COMP (EMG/NCS) LT ordered Referral Ordered: MUSC TEST DONE W/N TEST COMP (EMG/NCS) RT ordered Referral Ordered: RADEX HAND MINIMUM 3 VIEWS LT ordered Referral Ordered: RADEX FNGR MINIMUM 2 VIEWS LT hand ordered Referral Ordered: RADEX HAND MINIMUM 3 VIEWS RT hand ordered History Of Present Illness Encounter Date Complaint History Of Prese nt Illness No Information Functional Status Date Functional Assessmen t No Information Instructions Date Instruction Additional Infor edilson Lifestyle education regarding di et Related to Body mass index [BMI] 25.0-25.9, adult Activity as tolerated. Related t o Osteoarthritis of right thumb Activity as tolerated. Related t o Osteoarthritis of left thumb Assessments Type Assessment Date assessment Primary osteoarthrit is of first carpometacarpal joint of left hand assessment Primary osteoarthrit is of first carpometacarpal joint of right hand assessment Body mass index [BMI] 25.0-25.9, adult Patient Care Teams Name Effective Dates (start - stop) Status Members No Information
--- NOTE | 2024-09-06 09:00 | P.PNAN_ITS ---
Anes - Initial Pre Proc Eval Procedure: Operation Date: 09/06/24 10:30 Proposed Procedures p Esophagogastroduodenoscopy - Eugene Patel MD Date/Time: 09/06/24 09:00 Surgeon: Eugene Patel MD Pre Op Diagnosis: Eructation, Abdominal distension (gaseous) Patient Data Age: 64 Gender: F Height: 1.57 m Weight: 64 kg Allergies Allergy/AdvReac Type Severity Reaction Status Date / Time No Known Allergies Allergy Verified 09/06/24 09:26 Home Medications ?Medication ?Instructions ?Recorded ?Confirmed ?Type ergocalciferol (vitamin D2) 1,250 1,250 mcg PO WEEKLY 05/07/24 09/06/24 History mcg (50,000 unit) capsule omeprazole 40 mg capsule,delayed 40 mg PO DAILY #30 caps 05/07/24 08/26/24 Rx release Patient hx anesthesia problems: none Family hx anesthesia problems: none Results Review: All pre-operative results and documents have been reviewed as part of the pre- operative evaluation. [facility] Past Medical History Medical History (Updated 09/06/24 @ 09:01 by Jonathan Rose DO) GERD (gastroesophageal reflux disease) Surgical History Surgical History History of hysterectomy partial Social History Social History Years smoked: 3 Smoking status: Former smoker Tobacco type: cigarettes Alcohol intake: current Drinks per week: 1 Substance use: never Substance use type: does not use Living arrangements: alone Spiritual care concerns: No Anes - Eval Final PreProcedure Day of Procedure 09/06/24 09:00 Patient weight: overweight Heart: regular rate and rhythm Lungs: clear to auscultation Airway: Mallampati scale class II Neurological: alert and oriented Last oral intake: >/= 8 hours ASA classification: II Emergent: no Anesthetic plan: proceed Anesthesia type and monitoring: general GIVS and standard monitoring Results Review: All pre-operative results and documents have been reviewed as part of the pre- operative evaluation. Informed Consent: The patient's anesthetic plan and its attendant risks and benefits were discussed with the patient/family/POA. Questions were solicited and answers provided to the satisfaction of the patient/family/POA.
[2024-09-06 09:20] VITALS: BP 126/75; PULSE 70; RESP 18; TEMP 36.6; O2SAT 100; BMI 26.4
[2024-09-06] MEDS: LACTATED RINGERS 1,000 ML 150 ML IV CONT (09:35)
[2024-09-06] MEDS: SIMETHICONE ORAL SUSPENSION 20 MG/0.3 ML 30 ML BOTTLE 1.8 ML PO (09:36)
--- NOTE | 2024-09-06 10:10 | PM.IMHP ---
H&P: HPI History of Present Illness Date/Time: 09/06/24 10:10 Chief Complaint: Dyspepsia -excess eructation Narrative: patient with intermittent dyspepsia, occasional postprandial epigastric discomfort and excessive belching. She is referred for EGD. Review of Systems Review of Systems: All systems reviewed & are unremarkable except as noted in HPI and below PMFSH Past Medical History Medical History (Updated 09/06/24 @ 09:01 by Jonathan Rose DO) GERD (gastroesophageal reflux disease) Surgical History Surgical History History of hysterectomy partial Social History Social History Years smoked: 3 Smoking status: Former smoker Tobacco type: cigarettes Alcohol intake: current Drinks per week: 1 Substance use: never Substance use type: does not use Living arrangements: alone Spiritual care concerns: No Meds Home Medications and Allergies Home Medications ?Medication ?Instructions ?Recorded ?Confirmed ?Type ergocalciferol (vitamin D2) 1,250 1,250 mcg PO WEEKLY 05/07/24 09/06/24 History mcg (50,000 unit) capsule omeprazole 40 mg capsule,delayed 40 mg PO DAILY #30 caps 05/07/24 08/26/24 Rx release Allergies Allergy/AdvReac Type Severity Reaction Status Date / Time No Known Allergies Allergy Verified 09/06/24 09:26 Vital Signs Vital Signs - 24 hr 09/06/24 09:20 Temperature 97.8 F Pulse Rate 70 Respiratory Rate 18 Blood Pressure 126/75 Pulse Oximetry 100 Oxygen Delivery Room Air Exam Const: General: cooperative and healthy appearing Resp: Effort & Inspection: normal respiratory effort and able to speak in complete sentences Auscultation: clear to auscultation bilaterally Cardio: Rate: regular rate Rhythm: regular rhythm GI: Inspection: normal to inspection GI Palp: No No hepatosplenomegaly present Auscultation: normal bowel sounds Rectal Exam: deferred Skin: General skin exam: normal color Psych: Appearance: grossly normal Mental Status: mental status grossly normal Assessment and Plan Assessment and plan (1) Epigastric pain: Code(s): R10.13 - Epigastric pain Status: Acute Assessment and Plan: The patient is deemed a good candidate for the procedure. Consent signed. Will proceed.
--- NOTE | 2024-09-06 10:25 | S_PTH ---
PATIENT: Grace Bañuelos LOC: [facility]#:[id number] AGE/SX: 64/F ROOM: RE09/06/[address]: Eugene Patel MD : 1960 BED: DIS: 09/06/2024 SPEC #: [id number] RECD: 09/06/24 11:56 STATUS: MY REQ #: [id number] ROMERO: 09/06/24 10:[address]: Eugene Patel DEPT: [facility] Surgical RECD BY: Shira Cuevas ENTERED: 09/06/24 11:56 SP TYPE: Surgical OTHR DR: Alexis Flood, M.DVíctor Tissues: A - Gastric Biopsy B - Gastric Biopsy Procedures: Hematoxylin and Eosin Stain Gross and Microscopic Level 4
[2024-09-06 10:30] VITALS: BP 106/63; PULSE 79; RESP 18; O2SAT 98
[2024-09-06 10:40] VITALS: BP 110/69; PULSE 71; RESP 16; O2SAT 97
[2024-09-06 10:50] VITALS: BP 132/78; PULSE 76; RESP 18; O2SAT 99
== END 2024-09-06 11:05 | disposition home or self-care (01) ==
PROVIDERS: PCP Family Medicine; Referring Provider Nurse Practitioner; Visit Provider Internal Medicine Gastroenterology
PROC: 0DJ08ZZ Inspection of Upper Intestinal Tract, Via Natural or Artificial Opening Endoscopic (ICD-10-PCS; CPT 43239; principal; 2024-09-06 10:30)
DX: R10.13 Epigastric pain (principal)
CPT/HCPCS: 43239; 88305; J2003; J2704; J7120